=== PATIENT | male | born 1975 | race African-American/Black ===

== ENCOUNTER 2024-09-29 18:48 | Inpatient (IN) ==
[2024-09-29] MEDS: KETOROLAC TROMETHAMINE 15 MG/ML VIAL IV ONE (19:16)
[2024-09-29] MEDS: ONDANSETRON INJ 2 MG/ML 2 ML VIAL IV STA ×2 (19:16→20:09)
[2024-09-29 19:40] LABS: Basophils # (auto) 0.04 K/uL (0.00-0.20); Basophils % (auto) 0.5 %; Eosinophils # (auto) 0.03 K/uL (0.00-0.50); Eosinophils % (auto) 0.4 %; Hemoglobin 15.7 g/dl (14.0-18.0); Immature Granulocytes # (auto) 0.03 K/uL (0.01-0.20); Immature Granulocytes % (auto) 0.4 %; Lymphocytes # (auto) 1.83 K/uL (1.20-3.40); Lymphocytes % (auto) 23.2 %; Mean Corpuscular Hemoglobin 25.3 pg (25.0-34.0); Mean Corpuscular Volume 78.9 fL (80.0-100.0); Mean Platelet Volume 9.7 fL (9.4-12.4); Monocytes # (auto) 0.65 K/uL (0.11-0.59); Monocytes % (auto) 8.2 %; Neutrophils # (auto) 5.32 K/uL (1.40-6.50); Neutrophils % (auto) 67.3 %; Platelet Count 226 K/uL (130-400); RDW Coefficient of Variation 13.9 % (11.5-14.5); RDW Standard Deviation 38.8 fL (36.4-46.3); Red Blood Count 6.21 M/uL (4.70-6.10)
[2024-09-29 19:55] LABS: Albumin Globulin Ratio 1.5 (0.9-2); Albumin Level 4.3 gm/dl (3.4-5.0); BUN Creatinine Ratio 11.8 (10-20); Bilirubin,Total 0.6 mg/dl (0.2-1.0); Calcium 9.7 mg/dl (8.6-10.3); Creatinine Clr Calc Pharmacy 64.9 ml/min; Globulin 2.8 gm/dl (2.5-4.0); Total Protein 7.1 gm/dl (6.0-8.3)
[2024-09-29 20:06] LABS: Appearance Urine Clear (Clear); Bilirubin Urine Negative (Negative); Blood Urine Negative (Negative); Color Urine Yellow; Glucose Urine UA Negative (Negative); Ketones Urine Trace (Negative); Leukocyte Esterase Urine Negative (Negative); Nitrite Urine Negative (Negative); Protein Urine Negative (Negative); Specific Gravity Urine 1.025 (1.000-1.030); Urobilinogen Urine Negative (Negative)
[2024-09-29] MEDS: MoRPHine SULFATE 4 MG/ML 1 ML CARP\\VIAL IV STA ×2 (20:09→21:37)
[2024-09-29] MEDS: SODIUM CHLORIDE 0.9% 1,000 ML IV SCH (20:09)
[2024-09-29 21:33] LABS: Adenovirus PCR Not Detected (NotDetected); Bordetella parapertussis PCR Not Detected (NotDetected); Bordetella pertussis PCR Not Detected (NotDetected); Chlamydia pneumoniae PCR Not Detected (NotDetected); Coronavirus 229E PCR Not Detected (NotDetected); Coronavirus CoV-2 (COVID19)PCR Not Detected (NotDetected); Coronavirus HKU1 PCR Not Detected (NotDetected); Coronavirus NL63 PCR Not Detected (NotDetected); Coronavirus OC43PCR Not Detected (NotDetected); Human Metapneumovirus PCR Not Detected (NotDetected); Influenza A PCR Not Detected (NotDetected); Influenza B PCR Not Detected (NotDetected); Mycoplasma pneumoniae PCR Not Detected (NotDetected); Parainfluenza Virus 1 PCR Not Detected (NotDetected); Parainfluenza Virus 2 PCR Not Detected (NotDetected); Parainfluenza Virus 3 PCR Not Detected (NotDetected); Parainfluenza Virus 4 PCR Not Detected (NotDetected); Respiratory Syncytial VirusPCR Not Detected (NotDetected); Rhinovirus/Enterovirus PCR Not Detected (NotDetected)
[2024-09-29] MEDS: OPTIRAY 320 100ml IV ONE (22:24)
--- NOTE | 2024-09-29 23:23 | History & Physical Report ---
Date of Service September 29, 2024 Assessment & Plan (1) ARF (acute renal failure): Plan: ARF Multifactorial obstructive uropathy, recurrent kidney stones Home medications contributory Complicated UTI Early pyelonephritis status post outpatient ceftriaxone Rx No sepsis UA clear hypertension, stable hyperlipidemia, not on statin Rx SIXTO on CPAP DM2 on oral medications, unknown baseline control gout, stable on regimen Admit to [facility] Monitor creatinine response to IVF Hold home diuretic, lisinopril, and ibuprofen until creatinine back to baseline Strain urine Urology consult re: obstructive uropathy N.p.o. in anticipation of procedure ISS BG goal 1 10-1 40, check hemoglobin A1c DVT prophylaxis. Heparin subcu Full code Text document was generated using [employer] voice recognition software. It may contain grammatical or spelling errors. Kindly contact undersigned for clarification of any documentation item in question. History of Present Illness Chief Complaint: Kidney stone pain Primary Care Provider: YOVANI Arroyo History obtained from patient and records. Medical history significant for hypertension, hyperlipidemia, SIXTO on CPAP, DM2 on oral medications, gout, urolithiasis. 2 days ago, patient noted achy right-sided abdominal and flank pain reminiscent of kidney stone pain. No hematuria, no fever, no chills. Patient evaluated at [facility] ER Early pyelonephritis on CT. Patient given ceftriaxone at the ER prior to [facility]. Patient received IM ceftriaxone daily at facility following discharge. Recurrence of right sided abdominal and flank pain today with nausea symptoms. Poor appetite. Transient SOB from pain. Denies chest pain. No hematuria. Patient returned to ER for evaluation. IV ceftriaxone administered at the ER. 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 Allergies Allergy/AdvReac Type Severity Reaction Status Date / Time No Known Allergies Allergy Verified 09/29/24 23:50 Home Medications Medication Instructions Recorded Confirmed Type acetaminophen 500 mg tablet 1,000 mg PO TID PRN Pain 09/29/24 09/29/24 History allopurinol 300 mg tablet 300 mg PO DAILY 09/29/24 09/29/24 History ceftriaxone 1 gram solution for 1 g IM DAILY 09/29/24 09/29/24 History injection ceftriaxone 1 gram solution for 1 g IM Q12H 09/29/24 09/30/24 History injection ceftriaxone 2 gram solution for 2 g IM DAILY 09/30/24 09/30/24 History injection chlorthalidone 25 mg tablet 12.5 mg PO DAILY 09/30/24 09/30/24 History colchicine 0.6 mg tablet 0.6 mg PO DAILY PRN FLARES 09/30/24 09/30/24 History ibuprofen 400 mg tablet 400 mg PO TID PRN Pain 09/30/24 09/30/24 History lisinopril 30 mg tablet 30 mg PO DAILY 09/30/24 09/30/24 History metformin 500 mg tablet 500 mg PO BIDM 09/30/24 09/30/24 History promethazine 25 mg/mL injection 25 mg IM DAILY PRN Nausea And 09/30/24 09/30/24 History solution Vomiting Past Med/Surg History Problem List ARF (acute renal failure) Right kidney stone (Acute) Acute right flank pain (Acute) Acute pyelonephritis (Acute) Medical History Diabetes Hypertension Social History Smoking Status: Never smoker Hx Alcohol Use: No Hx Substance Use: No Preferred Language: Zimbabwean Communication Ability: Effective Bag Patcher Required: No Beliefs That Will Affect Care: None Current Living Situation Comment: [facility] Other Information That Helps Us Care for You: No Feels Safe at Home: Yes Safety Concerns: Feels Safe At This Time Review of Systems Review of Systems: As per HPI, all other systems reviewed and negative Physical Exam Physical Exam: GENERAL: Anxious, obese, no respiratory distress SKIN: Normal color, warm HEENT: Alopecia, bespectacled, pink palpebral conjunctivae, no ptosis, dry buccal mucosa NECK : Supple, no tenderness CHEST : CTA, no tenderness HEART : RRR, no obvious murmurs ABDOMEN: Some distention, RLQ tenderness EXTREMITIES : No LE swelling/tenderness, palpable pulses, no other conspicuous deformities noted NEUROLOGIC : Coherent, no facial asymmetry, no other gross focality Results & Data Results & Data Vital Signs (Past 12 Hours) Vital Signs Temp Pulse Pulse Resp BP BP Pulse Ox 09/29/24 22:00 75 18 132/73 93 09/29/24 20:00 73 18 147/84 H 96 09/29/24 18:56 36.5 C 76 16 189/102 H 98 O2 Del Method 09/29/24 22:00 Room Air 09/29/24 20:00 09/29/24 18:56 Room Air Laboratory Results Laboratory Results WBC 7.90 K/ul (4.8-10.8) 09/29/24 19: RBC 6.21 M/uL (4.70-6.10) H 09/29/24 19:24 Hgb 15.7 g/dl (14.0-18.0) 09/29/24 19: Hct 49.0 % (42.0-52.0) 09/29/24: MCV 78.9 fL (80.0-100.0) L 09/29/24 19: MCH 25.3 pg (25.0-34.0) 09/29/24: MCHC 32.0 g/dL (32.0-36.0) 09/29/24: RDW Std Deviation 38.8 fL (36.4-46.3) 09/29/24: RDW Coeff of Madie 13.9 % (11.5-14.5) 09/29/24: Plt Count 226 K/uL (130-400) 09/29/24 19: MPV 9.7 fL (9.4-12.4) 09/29/24 19: Immature Gran % (Auto) 0.4 % 09/29/24: Neut % (Auto) 67.3 % 09/29/24: Lymph % (Auto) 23.2 % 09/29/24 19: [place] % (Auto) 8.2 % 09/29/24: Eos % (Auto) 0.4 % 09/29/24: Baso % (Auto) 0.5 % 09/29/24: Neut # (Auto) 5.32 K/uL (1.40-6.50) 09/29/24 19: Lymph # (Auto) 1.83 K/uL (1.20-3.40) 09/29/24: [place] # (Auto) 0.65 K/uL (0.11-0.59) H 09/29/24 19:24 Eos # (Auto) 0.03 K/uL (0.00-0.50) 09/29/24 19:24 Baso # (Auto) 0.04 K/uL (0.00-0.20) 09/29/24 19:24 Immature Gran # (Auto) 0.03 K/uL (0.01-0.20) 09/29/24 19:24 Sodium 138 mmol/L (136-145) 09/29/24 19:24 Potassium 4.0 mmol/L (3.5-5.1) 09/29/24 19:24 Chloride 105 mmol/L (98-107) 09/29/24 19:24 Carbon Dioxide 25 mmol/L (21-32) 09/29/24 19:24 Anion Gap 8 (3-11) 09/29/24 19:24 BUN 20 mg/dl (6-23) 09/29/24 19:24 Creatinine 1.70 mg/dl (0.6-1.4) H 09/29/24 19:24 Est Cr Clr Drug Dosing 64.9 ml/min 09/29/24 19:24 eGFR 49.11 09/29/24 19:24 BUN/Creatinine Ratio 11.8 (10-20) 09/29/24 19:24 Glucose 126 mg/dl (70-99(Fasting)) H 09/29/24 19:24 Calcium 9.7 mg/dl (8.6-10.3) 09/29/24 19:24 Total Bilirubin 0.6 mg/dl (0.2-1.0) 09/29/24 19:24 AST 25 U/L (13-39) 09/29/24 19:24 ALT 27 U/L (7-52) 09/29/24 19:24 Alkaline Phosphatase 64 U/L (34-104) 09/29/24 19:24 Total Protein 7.1 gm/dl (6.0-8.3) 09/29/24 19:24 Albumin 4.3 gm/dl (3.4-5.0) 09/29/24 19:24 Globulin 2.8 gm/dl (2.5-4.0) 09/29/24 19:24 Albumin/Globulin Ratio 1.5 (0.9-2) 09/29/24: Urine Color Yellow 09/29/24: Urine Appearance Clear (Clear) 09/29/24: Urine pH 5.0 (4.5-7.5) 09/29/24: Ur Specific [place] 1.025 (1.000-1.030) 09/29/24: Urine Protein Negative (Negative) 09/29/24: Urine Glucose (UA) Negative (Negative) 09/29/24: Urine Ketones Trace (Negative) H 09/29/24: Urine Blood Negative (Negative) 09/29/24: Urine Nitrite Negative (Negative) 09/29/24: Urine Bilirubin Negative (Negative) 09/29/24 Urine Urobilinogen Negative (Negative) 09/29/24 Ur Leukocyte Esterase Negative (Negative) 09/29/24: Adenovirus (PCR) Not Detected (NotDetected) 09/29/24 20: B. pertussis DNA (PCR) Not Detected (NotDetected) 09/29/24 20: B.parapertussis DNA PCR Not Detected (NotDetected) 09/29/24 20: C. pneumoniae DNA (PCR) Not Detected (NotDetected) 09/29/24 20: Coronavirus OC43 (PCR) Not Detected (NotDetected) 09/29/24 20: Coronavirus HKU1 (PCR) Not Detected (NotDetected) 09/29/24 20: Coronavirus 229E (PCR) Not Detected (NotDetected) 09/29/24 20: SARS-CoV-2 (PCR) Not Detected (NotDetected) 09/29/24 20: Coronavirus NL63 (PCR) Not Detected (NotDetected) 09/29/24 20: Human Metapneumovir PCR Not Detected (NotDetected) 09/29/24 20: Influenza Type A (PCR) Not Detected (NotDetected) 09/29/24 20: Influenza Type B (PCR) Not Detected (NotDetected) 09/29/24 20: M. pneumoniae (PCR) Not Detected (NotDetected) 09/29/24 20:26 Parainfluenza 1 (PCR) Not Detected (NotDetected) 09/29/24 20:26 Parainfluenza 2 (PCR) Not Detected (NotDetected) 09/29/24 20:26 Parainfluenza 3 (PCR) Not Detected (NotDetected) 09/29/24 20:26 Parainfluenza 4 (PCR) Not Detected (NotDetected) 09/29/24 20:26 RSV (PCR) Not Detected (NotDetected) 09/29/24 20:26 Entero/Rhino (PCR) Not Detected (NotDetected) 09/29/24 20:26 CT abdomen pelvis: Previously seen 10 mm right renal pelvis stone has migrated to the proximal right ureter, now at the L3 level, producing mild upstream hydroureteronephrosis. Diagnostic Findings Chest x-ray as per my interpretation atelectasis
[2024-09-29] MEDS ORDERED: PROMETHAZINE 12.5 MG/50.5 ML BAG IV PRN (23:24)
[2024-09-29] MEDS: cefTRIAXone SODIUM 1,000 MG/50 ML BAG IV STA (23:25)
--- NOTE | 2024-09-29 23:33 | CT Scan Report ---
Exam(s): CT ABDOMEN + PELVIS With Contrast IV Amt: 93 cc opti 320 EXAM: CT Abdomen and Pelvis With Intravenous Contrast CLINICAL HISTORY: Reason for exam: RLQ pain. TECHNIQUE: Axial computed tomography images of the abdomen and pelvis with intravenous contrast. CTDI is 27.98 mGy and DLP is 1428.66 mGy-cm. Automated exposure control was utilized for the study. A dose lowering technique was utilized adhering to the principles of ALARA. CONTRAST: Patient received 93 cc opti 320 of IV contrast COMPARISON: 09/27/24 FINDINGS: Lung bases: Unremarkable. ABDOMEN: Liver: Unremarkable. No mass. Gallbladder and bile ducts: Unremarkable. No calcified stones. No ductal dilation. Pancreas: Unremarkable. No mass. No ductal dilation. Spleen: Unremarkable. No splenomegaly. Adrenals: Unremarkable. No mass. Kidneys and ureters: Previously seen 10 mm right renal pelvis stone has migrated to the proximal right ureter, now at the L3 level, producing mild upstream hydroureteronephrosis. Punctate nonobstructing left kidney stones. Left kidney and collecting system are otherwise unremarkable. Stomach and bowel: Unremarkable. No obstruction. No mucosal thickening. PELVIS: Appendix: Normal appendix. Bladder: Unremarkable. No mass. Reproductive: Unremarkable as visualized. ABDOMEN and PELVIS: Intraperitoneal space: Unremarkable. No free air, significant free fluid, or fluid collection. Bones/joints: No acute fracture. No dislocation. Soft tissues: Unremarkable. Vasculature: Unremarkable. No abdominal aortic aneurysm. Lymph nodes: Unremarkable. No enlarged lymph nodes. IMPRESSION: Previously seen 10 mm right renal pelvis stone has migrated to the proximal right ureter, now at the L3 level, producing mild upstream hydroureteronephrosis. Electronically signed by: Marquita Manriquez M.D. 09/29/24 23:32 PM
--- NOTE | 2024-09-29 23:37 | Emergency Department Note ---
History of Present Illness General Chief complaint: Kidney Stone Stated complaint: KIDNEY STONE Time Seen by Provider: 09/29/24 19:52 Source: patient Mode of arrival: ambulatory Limitations: no limitations History of Present Illness Maximum Pain Intensity: 6 Patient is a 48-year-old male presents with persistent right lower quadrant and right flank pain. He was seen 2 days prior with similar pain and diagnosed with pyelonephritis. He is currently saving IM ceftriaxone [facility] a day at the senior care. He also reports increased urinary urgency associate with the pain. He did have a renal calculi 1 cm in diameter noted on prior CT but no obstructive process noted. He did have a fever today at the senior care that has since resolved. Denies any nausea or vomiting. Denies any chest pain, shortness of breath, cough, change in bowel habits, hematuria, foul-smelling urine. Allergies Allergy/AdvReac Type Severity Reaction Status Date / Time No Known Allergies Allergy Unverified 09/29/24 21:21 Past Med/Surg History Problem List (Updated 09/29/24 @ 23:41 by Marshal Beatty MD) Right kidney stone (Acute) Acute right flank pain (Acute) Acute pyelonephritis (Acute) Medical History Diabetes Hypertension Social History Smoking Status: Never smoker Preferred Language: Slovak Feels Safe at Home: Yes Review of Systems See HPI for pertinent positives & negatives. Physical Exam Vital Signs Vital Signs - 24 hr 09/29/24 18:56 09/29/24 20:00 09/29/24 22:00 Temperature 36.5 C Temperature Source Temporal Artery Scan Pulse Rate 76 Pulse Rate [Finger] 73 75 Respiratory Rate 16 18 18 Blood Pressure 189/102 H Blood Pressure [Right Arm] 147/84 H 132/73 Blood Pressure Mean 131 Blood Pressure Mean [Right Arm] 105 92 Pulse Oximetry 98 96 93 Oxygen Delivery Method Room Air Room Air Sepsis Recent Fever Within 48 Hours Yes Sepsis New/Unexplained Change in Mental Status No Sepsis Action Taken by Nursing No Action Required See below Constitutional WD/WN, vitals as above Respiratory normal respiratory effort, lungs clear to auscultation Cardiovascular RRR, no murmur, no edema Gastrointestinal (Abdomen) Tenderness to palpation to the right lower quadrant, negative right CVA tenderness, nondistended, nonperitoneal exam, no mass Course Administered Medications Ceftriaxone Sodium (Rocephin) 1,000 mg in 50 mls @ 100 mls/hr IV NOW STA Stop: 09/29/24 23:41 Last Admin: 09/29/24 23:25 Dose: 100 mls/hr Documented By: ADAM Discontinued Medications Sodium Chloride (Nss) 1,000 mls @ 999 mls/hr IV .Q1H1M RONY Stop: 09/29/24 21:01 Last Infusion: 09/29/24 22:48 Dose: Infused Documented By: Admin: 09/29/24 20:09 Dose: 999 mls/hr Documented By: HEAVEN Ioversol (Optiray 320 100ml) 93 ml IV ONCE ONE Stop: 09/29/24 22:23 Last Admin: 09/29/24 22:24 Dose: 93 ml Documented By: THELMA Ketorolac Tromethamine (Ketorolac Tromethamine 15 Mg/Ml Vial) 10 mg IV NOW ONE Stop: 09/29/24 19:14 Last Admin: 09/29/24 19:16 Dose: 10 mg Documented By: BENY Morphine Sulfate (Morphine Sulfate 4 Mg/Ml 1 Ml Carp\Vial) 4 mg IV NOW STA Stop: 09/29/24 20:02 Last Admin: 09/29/24 20:09 Dose: 4 mg Documented By: HEAVEN Morphine Sulfate (Morphine Sulfate 4 Mg/Ml 1 Ml Carp\Vial) 4 mg IV NOW STA Stop: 09/29/24 21:22 Last Admin: 09/29/24 21:37 Dose: 4 mg Documented By: HEAVEN Ondansetron HCl (Ondansetron Inj 2 Mg/Ml 2 Ml Vial) 4 mg IV NOW STA Stop: 09/29/24 19:14 Last Admin: 09/29/24 19:16 Dose: 4 mg Documented By: BENY Ondansetron HCl (Ondansetron Inj 2 Mg/Ml 2 Ml Vial) 4 mg IV NOW STA Stop: 09/29/24 20:02 Last Admin: 09/29/24 20:09 Dose: Not Given Documented By: HEAVEN Medical Decision Making Differential Diagnosis Obstructive uropathy, pyelonephritis, pyogenic abscess, cholecystitis, choledocholithiasis, appendicitis, gastroenteritis Laboratory Data Attestation: I reviewed the patient's lab results. 09/29/24 19:24 09/29/24 19:24 Lab Results 09/29/24 09/29/24 09/29/24 Range/Units 19:24 19: 20:26 WBC 7.90 (4.8-10.8) K/ul RBC 6.21 H (4.70-6.10) M/uL Hgb 15.7 (14.0-18.0) g/dl Hct 49.0 (42.0-52.0) % MCV 78.9 L (80.0-100.0) fL MCH 25.3 (25.0-34.0) pg MCHC 32.0 (32.0-36.0) g/dL RDW Std Deviation 38.8 (36.4-46.3) fL RDW Coeff of Madie 13.9 (11.5-14.5) % Plt Count 226 (130-400) K/uL MPV 9.7 (9.4-12.4) fL Immature Gran % (Auto) 0.4 % Neut % (Auto) 67.3 % Lymph % (Auto) 23.2 % [place] % (Auto) 8.2 % Eos % (Auto) 0.4 % Baso % (Auto) 0.5 % Neut # (Auto) 5.32 (1.40-6.50) K/uL Lymph # (Auto) 1.83 (1.20-3.40) K/uL [place] # (Auto) 0.65 H (0.11-0.59) K/uL Eos # (Auto) 0.03 (0.00-0.50) K/uL Baso # (Auto) 0.04 (0.00-0.20) K/uL Immature Gran # (Auto) 0.03 (0.01-0.20) K/uL Sodium 138 (136-145) mmol/L Potassium 4.0 (3.5-5.1) mmol/L Chloride 105 (98-107) mmol/L Carbon Dioxide 25 (21-32) mmol/L Anion Gap 8 (3-11) BUN 20 (6-23) mg/dl Creatinine 1.70 H (0.6-1.4) mg/dl Est Cr Clr Drug Dosing 64.9 ml/min eGFR 49.11 BUN/Creatinine Ratio 11.8 (10-20) Glucose 126 H (70-99(Fasting)) mg/dl Calcium 9.7 (8.6-10.3) mg/dl Total Bilirubin 0.6 (0.2-1.0) mg/dl AST 25 (13-39) U/L ALT 27 (7-52) U/L Alkaline Phosphatase 64 (34-104) U/L Total Protein 7.1 (6.0-8.3) gm/dl Albumin 4.3 (3.4-5.0) gm/dl Globulin 2.8 (2.5-4.0) gm/dl Albumin/Globulin Ratio 1.5 (0.9-2) Urine Color Yellow Urine Appearance Clear (Clear) Urine pH 5.0 (4.5-7.5) Ur Specific [place] 1.025 (1.000-1.030) Urine Protein Negative (Negative) Urine Glucose (UA) Negative (Negative) Urine Ketones Trace H (Negative) Urine Blood Negative (Negative) Urine Nitrite Negative (Negative) Urine Bilirubin Negative (Negative) Urine Urobilinogen Negative (Negative) Ur Leukocyte Esterase Negative (Negative) Adenovirus (PCR) Not Detected (NotDetected) B. pertussis DNA (PCR) Not Detected (NotDetected) B.parapertussis DNA PCR Not Detected (NotDetected) C. pneumoniae DNA (PCR) Not Detected (NotDetected) Coronavirus OC43 (PCR) Not Detected (NotDetected) Coronavirus HKU1 (PCR) Not Detected (NotDetected) Coronavirus 229E (PCR) Not Detected (NotDetected) SARS-CoV-2 (PCR) Not Detected (NotDetected) Coronavirus NL63 (PCR) Not Detected (NotDetected) Human Metapneumovir PCR Not Detected (NotDetected) Influenza Type A (PCR) Not Detected (NotDetected) Influenza Type B (PCR) Not Detected (NotDetected) M. pneumoniae (PCR) Not Detected (NotDetected) Parainfluenza 1 (PCR) Not Detected (NotDetected) Parainfluenza 2 (PCR) Not Detected (NotDetected) Parainfluenza 3 (PCR) Not Detected (NotDetected) Parainfluenza 4 (PCR) Not Detected (NotDetected) RSV (PCR) Not Detected (NotDetected) Entero/Rhino (PCR) Not Detected (NotDetected) Imaging Data Radiologist's Impression: Abdomen/Pelvis CT 09/29/24 21:21 Exam(s): CT ABDOMEN + PELVIS With Contrast IV Amt: 93 cc opti 320 EXAM: CT Abdomen and Pelvis With Intravenous Contrast CLINICAL HISTORY: Reason for exam: RLQ pain. TECHNIQUE: Axial computed tomography images of the abdomen and pelvis with intravenous contrast. CTDI is 27.98 mGy and DLP is 1428.66 mGy-cm. Automated exposure control was utilized for the study. A dose lowering technique was utilized adhering to the principles of ALARA. CONTRAST: Patient received 93 cc opti 320 of IV contrast COMPARISON: 09/27/24 FINDINGS: Lung bases: Unremarkable. ABDOMEN: Liver: Unremarkable. No mass. Gallbladder and bile ducts: Unremarkable. No calcified stones. No ductal dilation. Pancreas: Unremarkable. No mass. No ductal dilation. Spleen: Unremarkable. No splenomegaly. Adrenals: Unremarkable. No mass. Kidneys and ureters: Previously seen 10 mm right renal pelvis stone has migrated to the proximal right ureter, now at the L3 level, producing mild upstream hydroureteronephrosis. Punctate nonobstructing left kidney stones. Left kidney and collecting system are otherwise unremarkable. Stomach and bowel: Unremarkable. No obstruction. No mucosal thickening. PELVIS: Appendix: Normal appendix. Bladder: Unremarkable. No mass. Reproductive: Unremarkable as visualized. ABDOMEN and PELVIS: Intraperitoneal space: Unremarkable. No free air, significant free fluid, or fluid collection. Bones/joints: No acute fracture. No dislocation. Soft tissues: Unremarkable. Vasculature: Unremarkable. No abdominal aortic aneurysm. Lymph nodes: Unremarkable. No enlarged lymph nodes. IMPRESSION: Previously seen 10 mm right renal pelvis stone has migrated to the proximal right ureter, now at the L3 level, producing mild upstream hydroureteronephrosis. Electronically signed by: Marquita Manriquez M.D. 09/29/24 23:32 PM Blood Pressure Blood Pressure Findings: Elevated blood pressure Blood Pressure Disposition: elevated BP felt to be situational MDM Narrative Patient is a 48-year-old male presents with persistent right lower quadrant and right flank pain. Afebrile nontoxic-appearing here today. Nonperitoneal abdominal exam. No leukocytosis or bandemia noted on lab work. UA nonconcerning for persistent infection. Creatinine has increased to 1.[address] scan was repeated today which shows progression of the 1 cm renal stone to the proximal ureter. Because of the pain requirements and the size of the stone patient will likely need urologic intervention for definitive management of ureteral stone. No evidence of septic stone at this time no indication for emergent urologic intervention. Will admit to hospitalist service for further management and consultation with urology. Impression & Plan Right kidney stone Admit to hospitalist Discharge Plan Visit Data Chief Complaint: Kidney Stone Stated Complaint: KIDNEY STONE ED Provider: Marshal Beatty Discharge Problem: Right kidney stone Forms Stand Alone Forms: [facility] Referrals Referrals: [facility] [Primary Care Provider] -
[2024-09-29] MEDS ORDERED: CARBOHYDRATES FOR HYPOGLYCEMIA PO PRN (23:48)
[2024-09-29] MEDS ORDERED: GLUCOSE 10 TAB/TUBE PO PRN (23:48)
[2024-09-29] MEDS ORDERED: GLUCOSE 40% GEL 15 GM TUBE PO PRN (23:48)
[2024-09-29] MEDS ORDERED: GLUCAGON FOR INJ 1 MG VIAL SQ PRN (23:48)
[2024-09-29] MEDS ORDERED: DEXTROSE 50% 50 ML SYRINGE IV PRN (23:48)
[2024-09-29] MEDS ORDERED: LORazepam 0.5 MG TAB PO PRN (23:51)
[2024-09-30] MEDS: INSULIN ASPART PER UNIT CHARGE SC SCH ×2 (00:48→16:49)
[2024-09-30] MEDS: SODIUM CHLORIDE 0.9% 1,000 ML IV ONE ×2 (00:52→10:37)
--- NOTE | 2024-09-30 01:01 | XRay Report ---
EXAM: XR chest 1V portable CLINICAL HISTORY: SOB. TECHNIQUE: An X-ray image of the chest is obtained using an AP projection. COMPARISON: No prior studies are available for comparison. FINDINGS: Pulmonary Parenchyma: Lungs are clear bilaterally. No evidence of consolidation, collapse, or focal opacities. No pulmonary nodules are identified. Prominent bronchovascular markings are seen bilaterally likely due to congestion. No evidence of pleural effusion or pleural thickening. Heart and Mediastinum: Heart size and shape are normal. No mediastinal widening or masses. No hilar or mediastinal lymphadenopathy. Bony Thorax: The bony thorax appears intact without fractures or deformities. Degenerative changes are seen in the visualized thoracic spine. Soft Tissues: Soft tissues overlying the chest wall are unremarkable. IMPRESSION: 1. Prominent bronchovascular markings are seen bilaterally likely due to congestion. 2. No evidence of consolidation or pleural effusion. Electronically signed by Obdulio Reid 09-30-2024 01:00 AM
[2024-09-30] MEDS: HYDROmorphone INJ 1 MG/ML SYRINGE IV PRN (04:12)
[2024-09-30] MEDS: HEPARIN SOD 5,000 UNIT/0.5 ML VIAL SQ SCH (06:31)
[2024-09-30 06:47] LABS: Basophils # (auto) 0.02 K/uL (0.00-0.20); Basophils % (auto) 0.3 %; Eosinophils # (auto) 0.06 K/uL (0.00-0.50); Eosinophils % (auto) 0.8 %; Hematocrit (blood only) 42.1 % (42.0-52.0); Hemoglobin 13.6 g/dl (14.0-18.0); Immature Granulocytes # (auto) 0.02 K/uL (0.01-0.20); Immature Granulocytes % (auto) 0.3 %; Lymphocytes # (auto) 2.13 K/uL (1.20-3.40); Lymphocytes % (auto) 29.4 %; Mean Corpuscular Hemoglobin 25.8 pg (25.0-34.0); Mean Corpuscular Hgb Conc 32.3 g/dL (32.0-36.0); Mean Corpuscular Volume 79.7 fL (80.0-100.0); Mean Platelet Volume 10.5 fL (9.4-12.4); Monocytes # (auto) 0.87 K/uL (0.11-0.59); Neutrophils # (auto) 4.14 K/uL (1.40-6.50); Neutrophils % (auto) 57.2 %; Platelet Count 184 K/uL (130-400); RDW Coefficient of Variation 14.3 % (11.5-14.5); RDW Standard Deviation 40.8 fL (36.4-46.3); Red Blood Count 5.28 M/uL (4.70-6.10); White Blood Count 7.24 K/ul (4.8-10.8)
[2024-09-30 07:54] LABS: BUN Creatinine Ratio 8.8 (10-20); Blood Urea Nitrogen 18 mg/dl (6-23); Calcium 8.2 mg/dl (8.6-10.3); Carbon Dioxide 25 mmol/L (21-32); Chloride 108 mmol/L (98-107); Creatinine Clr Calc Pharmacy 54.1 ml/min; Glucose 112 mg/dl (70-99(Fasting))
--- NOTE | 2024-09-30 08:26 | Urology Consultation ---
<Statement entered by Gopal Lorenz MD - 09/30/24 13:19> 48-year-old male with TODD and ureteral stone with ongoing pain. We will plan on cystoscopy and right ureteral stent placement to allow maximal drainage of his right kidney. Date of Consultation September 30, 2024 Assessment & Plan (1) Right kidney stone: (2) Acute right flank pain: (3) ARF (acute renal failure): 48-year-old male admitted for right renal colic and TODD secondary to an obstructing right ureteral calculus. Patient currently afebrile, hemodynamically stable Labs reviewedcreatinine increased to 2.04, WBC 7.24, hemoglobin 13.6 Urinalysis on arrival was not suspicious of infection, he has been on IM ce ftriaxone outpatient CT imaging reviewed and discussed Given obstructing right ureteral stone and TODD, recommend cystoscopy and right ureteral stent placement Ureteral stents were discussed in detail Discussed stone treatment to take place at a later date, patient is agreeable to proceed Proceed to OR for cystoscopy and right ureteral stent placement Keep n.p.o. for procedure Continue antibiotics and supportive care Patient can likely be discharged back to the [facility] after procedure, continue with course of antibiotics as previously planned History of Present Illness Reason for Consultation: right ureteral stone Attending Physician: Yenny Oden MD History of Present Illness This is a 48-year-old male with past medical history of hypertension, hyperlipidemia, SIXTO, type 2 diabetes, and nephrolithiasis who presented to the ED on 09/29/2024 for evaluation of recurrent right-sided abdominal and flank pain with nausea. He was seen at [facility] 2 days prior for right abdominal/flank pain and was diagnosed with UTI/early pyelonephritis and was discharged back to [facility] ([facility] to continue antibiotic therapy. Patient had recurrence of right flank discomfort, urinary symptoms, fever/chills and nausea and return for further evaluation. On arrival, he was afebrile, hypertensive. Lab work showed creatinine 1.7, WBC 7.9, hemoglobin 15.7. Urinalysis showed trace ketones, otherwise unremarkable. Bio fire PCR negative. CT abdomen pelvis noted previously seen 10 mm right renal pelvis stone has migrated to the proximal ureter resulting in mild upstream hydroureteronephrosis. Punctate nonobstructing left kidney stones. ED course: Ceftriaxone, IV fluids, ketorolac, morphine and ondansetron. He was admitted to the hospital medicine service for further management. Urology is consulted for right ureteral stone. Patient seen and examined in the emergency department. Two guards in room. Patient reports pain is controlled at present after recently receiving morphine. Reports urinary urgency/frequency. Reports fever/chills prior to arrival, but denies at present time. No nausea or vomiting at present. He reports that he had a Sprite yesterday evening. Prior history of stones. No previous history of stone surgery. Allergies Allergy/AdvReac Type Severity Reaction Status Date / Time No Known Allergies Allergy Verified 09/29/24 23:50 Home Medications Medication Instructions Recorded Confirmed Type acetaminophen 500 mg tablet 1,000 mg PO TID PRN Pain 09/29/24 09/29/24 History allopurinol 300 mg tablet 300 mg PO DAILY 09/29/24 09/29/24 History ceftriaxone 1 gram solution for 1 g IM DAILY 09/29/24 09/29/24 History injection ceftriaxone 1 gram solution for 1 g IM Q12H 09/29/24 09/30/24 History injection ceftriaxone 2 gram solution for 2 g IM DAILY 09/30/24 09/30/24 History injection chlorthalidone 25 mg tablet 12.5 mg PO DAILY 09/30/24 09/30/24 History colchicine 0.6 mg tablet 0.6 mg PO DAILY PRN FLARES 09/30/24 09/30/24 History ibuprofen 400 mg tablet 400 mg PO TID PRN Pain 09/30/24 09/30/24 History lisinopril 30 mg tablet 30 mg PO DAILY 09/30/24 09/30/24 History metformin 500 mg tablet 500 mg PO BIDM 09/30/24 09/30/24 History promethazine 25 mg/mL injection 25 mg IM DAILY PRN Nausea And 09/30/24 09/30/24 History solution Vomiting Patient History Medical History Diabetes Hypertension Social History Smoking Status: Never smoker Hx Alcohol Use: No Hx Substance Use: No Preferred Language: Swedish Communication Ability: Effective Assistant Gm Of Content & Delivery Required: No Beliefs That Will Affect Care: None Current Living Situation Comment: [place] Other Information That Helps Us Care for You: No Feels Safe at Home: Yes Safety Concerns: Feels Safe At This Time Review of Systems Review of Systems: All systems reviewed & are unremarkable except as noted in HPI & below Physical Exam Constitutional: well developed and well nourished; no acute distress Respiratory: normal respiratory effort; no respiratory distress and no labored breathing Gastrointestinal (Abdomen): Inspection/Auscultation: abdomen normal to inspection Musculoskeletal: Head/Neck/Chest: normocephalic Neurologic: moves all extremities and awake Psychiatric: Orientation: alert and oriented x 3 Results & Data Vital Signs (Past 12 Hours) Vital Signs Pulse Pulse Resp BP BP Pulse Ox O2 Del Method 09/30/24 06:16 66 09/30/24 06:06 65 18 105/57 L 93 Room Air 09/30/24 02:03 72 23 96 09/30/24 02:00 130/78 09/30/24 01:54 72 23 96 09/30/24 01:51 68 25 H 96 09/30/24 01:30 72 20 121/80 96 09/30/24 01:30 121/80 09/30/24 01:16 75 09/30/24 01:12 74 30 H 117/73 95 09/30/24 00:36 79 18 100/62 95 09/30/24 00:09 72 19 104/65 93 09/29/24 22:00 75 18 132/73 93 Room Air PG Care Time/CCT Total # of Minutes Spent Total Time Spent with Patient: Total time spent is greater than 50% in coordination of care (as documented) at patient's floor/unit and/or counseling patient: Coding Level of Care Code 67468 IN/OBS CONSULT LVL 4,60M Diagnoses Right kidney stone N20.0 Acute right flank pain R10.9 ARF (acute renal failure) N17.9
[2024-09-30] MEDS: allopurinoL 300 MG TAB PO SCH (08:28)
[2024-09-30 09:11] LABS: Potassium 3.9 mmol/L (3.5-5.1)
--- NOTE | 2024-09-30 11:22 | Hospitalist Progress Note ---
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 Patient was recently seen in the ED [09/27] for early pyelonephritis x right side and was discharged on Rocephin daily. Patient did have recurrent right-sided abdominal pain with nausea symptoms and hence presented again today to the ED. He is being managed for the following: Obstructive uropathy, recurrent kidney stones Early Right sided pyelonephritis Patient presents with recurrent right-sided abdominal pain with nausea symptoms and poor appetite. Admitting CTAP with 10 mm right renal stone at proximal right ureter producing mild upstream hydroureteronephrosis. Admitting UA negative for UTI, patient was on Rocephin daily prior to this admission. See above. Patient started on Rocephin 09/29, continue. Add probiotic. Urology on board, plan for cystoscopy and right ureteral stent placement. Resume diet after the procedure. Acute renal failure: Creatinine seems to be uptrending since September 27, 2.04 today. Likely secondary to obstructive uropathy. Plan for cystoscopy and right ureteral stent today, labs in AM. Continue with IV fluid for now. Hold nephrotoxic's until renal functions are better. Hold home diuretic, lisinopril, and ibuprofen until creatinine back to baseline. Other chronic medical conditions: Continue with/resume home meds as and when able. hypertension, stable hyperlipidemia, not on statin Rx SIXTO on CPAP DM2 on oral medications, unknown baseline control gout, stable on regimen DVT prophylaxis. Heparin subcu Full code Dispo: pending Cr improvement. Admission and Anticipated Discharge Date Admission Date: September 29, 2024 Subjective Patient was seen and examined at bedside. Patient was lying in bed, on room air, NAD, resting comfortably. Patient reports improvement in his right-sided belly pain significantly. Patient denies fever/headache/chest pain/sore throat/cough. Patient is n.p.o. for urological procedure later in the day. Physical Exam Physical Exam: GENERAL: NAD, obese, no respiratory distress SKIN: Normal color, warm HEENT: Alopecia, bespectacled, pink palpebral conjunctivae, no ptosis, moist buccal mucosa NECK : Supple, no tenderness CHEST : CTA, no tenderness HEART : RRR, no obvious murmurs ABDOMEN: No distention, RLQ tenderness - improved EXTREMITIES : No LE swelling/tenderness, palpable pulses, no other conspicuous deformities noted NEUROLOGIC : Coherent, no facial asymmetry, no other gross focality Results & Data Results & Data Vital Signs (Past 12 Hours) Vital Signs Pulse Pulse Resp BP BP Pulse Ox O2 Del Method 09/30/24 08:35 60 20 115/64 94 Room Air 09/30/24 06:16 66 09/30/24 06:06 65 18 105/57 L 93 Room Air 09/30/24 02:03 72 23 96 09/30/24 02:00 130/78 09/30/24 01:54 72 23 96 09/30/24 01:51 68 25 H 96 09/30/24 01:30 72 20 121/80 96 09/30/24 01:30 121/80 09/30/24 01:16 75 09/30/24 01:12 74 30 H 117/73 95 09/30/24 00:36 79 18 100/62 95 09/30/24 00:09 72 19 104/65 93
[2024-09-30 13:33] LABS: Estimated Average Glucose 134 mg/dl; Hemoglobin A1C 6.3 % (4.5-5.6)
[2024-09-30] MEDS ORDERED: LIDOCAINE 2% 2 ML VIAL/AMP(20MG/ML) INFIL ONE (13:43)
[2024-09-30] MEDS ORDERED: ONDANSETRON INJ 2 MG/ML 2 ML VIAL ONE (13:43)
[2024-09-30] MEDS ORDERED: fentaNYL citrate PF 100 MCG/2 ML VIAL ONE (13:43)
[2024-09-30] MEDS ORDERED: PROPOFOL IV EMULSION 10 MG/ML 20 ML VIAL IV ONE (13:43)
[2024-09-30] MEDS ORDERED: MIDAZOLAM HCL 1 MG/ML 2ML VIAL ONE (13:43)
--- NOTE | 2024-09-30 14:17 | Anesthesiology Consultation ---
Date of Service September 30, 2024 Assessment & Plan Chart Review Chart Review: Acceptable Risk for Surgery and Patient NOT seen in Pre Admission Testing Consults Requested none ASA ASA4 Proposed Anesthesia Anesthesia Type: General History Surgery Operation Date: 09/30/24 07:00 Proposed Procedures p Cystoscopy, Right Ureteral Stent Placement - Gopal Lorenz MD Height/Weight Height: 5 ft 9 in Weight: 109.9 kg Allergies Allergy/AdvReac Type Severity Reaction Status Date / Time No Known Allergies Allergy Verified 09/29/24 23:50 Medications Home Medications Medication Instructions Recorded Confirmed Last Taken acetaminophen 500 mg tablet 1,000 mg PO TID PRN Pain 09/29/24 09/29/24 Unknown allopurinol 300 mg tablet 300 mg PO DAILY 09/29/24 09/29/24 Unknown ceftriaxone 1 gram solution for 1 g IM DAILY 09/29/24 09/29/24 Unknown injection ceftriaxone 1 gram solution for 1 g IM Q12H 09/29/24 09/30/24 Unknown injection ceftriaxone 2 gram solution for 2 g IM DAILY 09/30/24 09/30/24 Unknown injection chlorthalidone 25 mg tablet 12.5 mg PO DAILY 09/30/24 09/30/24 Unknown colchicine 0.6 mg tablet 0.6 mg PO DAILY PRN FLARES 09/30/24 09/30/24 Unknown ibuprofen 400 mg tablet 400 mg PO TID PRN Pain 09/30/24 09/30/24 Unknown lisinopril 30 mg tablet 30 mg PO DAILY 09/30/24 09/30/24 Unknown metformin 500 mg tablet 500 mg PO BIDM 09/30/24 09/30/24 Unknown promethazine 25 mg/mL injection 25 mg IM DAILY PRN Nausea And 09/30/24 09/30/24 Unknown solution Vomiting Active Medications Generic Name Dose Route Start Last Admin Trade Name Freq PRN Reason Stop Dose Admin Allopurinol 300 mg 09/30/24 09:00 09/30/24 08:28 Allopurinol 300 Mg Tab PO 10/30/24 08:59 300 mg DAILY RONY Administration Heparin Sodium (Porcine) 5,000 units 09/30/24 06:00 09/30/24 12:32 Heparin Sod 5,000 Unit/0.5 Ml Vial SQ 10/30/24 05:59 Not Given Q8 RONY Hydromorphone HCl 1 mg 09/29/24 23:24 09/30/24 13:57 Hydromorphone Inj 1 Mg/Ml Syringe IV 10/13/24 23:23 1 mg Q4H PRN Administration Pain Sodium Chloride 1,000 mls @ 100 mls/hr 09/30/24 11:00 09/30/24 10:37 Nss IV 09/30/24 20:59 100 mls/hr .Q10H ONE Administration Insulin Aspart 0 units 09/30/24 00:00 09/30/24 11:21 Insulin Aspart Per Unit Charge SC 10/30/24 00:00 Not Given Q6 RONY Past Medical History Medical History Diabetes Hypertension HLD ARF Gout SIXTO obstructive uropathy kidney stone Right hydronephrosis Exercise / Class Metabolic Activity III < 4 Walking/Shop/Light housework Past Anesthesia History No Hx of Anesthesia Complications and No Family Hx of Anesthesia Complications History of PONV No Hx of PONV and No Hx of Motion Sickness Social History Smoking Status: Never smoker Hx Alcohol Use: No Hx Substance Use: No Physical Exam Vital Signs Last Vital Signs Temp 36.9 C 09/30/24 12:35 Pulse 78 09/30/24 12:35 Resp 18 09/30/24 12:35 BP 103/57 L 09/30/24 12:35 Pulse Ox 97 09/30/24 12:35 O2 Del Method Room Air 09/30/24 12:35 Testing Laboratory Results 09/30/24 06:22 09/30/24 08:15 Hemoglobin A1c 6.3 % (4.5-5.6) H 09/30/24 06:22 Urine Color Yellow 09/29/24 19: Urine Appearance Clear (Clear) 09/29/24 19: Urine pH 5.0 (4.5-7.5) 09/29/24: Ur Specific [place] 1.025 (1.000-1.030) 09/29/24: Urine Protein Negative (Negative) 09/29/24: Urine Glucose (UA) Negative (Negative) 09/29/24: Urine Ketones Trace (Negative) H 09/29/24 19: Urine Nitrite Negative (Negative) 09/29/24 19: Ur Leukocyte Esterase Negative (Negative) 09/29/24 19:25 09/30/24 09/30/24 11:15 06:21 POC Glucose 95 100 H Chest X-Ray Date: 09/29/24 Findings: + pulmonary vascular congestion
[2024-09-30] MEDS ORDERED: ePHEDrine sulfate 50 MG/ML AMP IV PRN (15:00)
[2024-09-30] MEDS ORDERED: ATROPINE SULFATE 0.1 MG/ML 10ML SYR IV PRN (15:00)
[2024-09-30] MEDS: ceFAZolin 2000MG 2,000 MG/15 ML SYR IV ONE (15:05)
[2024-09-30] MEDS ORDERED: PHENYLEPHRINE 100MCG/ML 5ML SYR ONE (15:21)
[2024-09-30] MEDS: DIATRIZOATE MEGLUMINE 30% 100ML VIAL INSTIL ONE (15:31)
--- NOTE | 2024-09-30 15:35 | Operative Report ---
PG Post Operative Report Pre & Post Diagnosis Operation Date: 09/30/24 07:00 Pre-Op Diagnosis: Right kidney stone, Acute right flank pain, TODD Post-Op Diagnosis: Right kidney stone, Acute right flank pain, TODD I identified the patient and participated in the time-out.: Yes Procedure Operation Date: 09/30/24 07:00 Actual Procedures p Cystoscopy, Right Ureteral Stent Placement, Retrograde pyelogram(Right) - Gopal Lorenz MD Surgeon Gopal Lorenz MD Regional Project Manager none Estimated Blood Loss 0 Findings See Below Thin film of scar tissue at the bulbar urethra, bypassed with the wire and then with the cystoscope. Bladder with evidence of incomplete emptying Successful right ureteral stent placement with turbid urine draining through the stent at the conclusion of procedure. Camacho catheter left in place to allow maximal drainage. Specimens None Drains 6 Slovak x 26 cm double-J ureteral stent in the right ureter Anesthesia Type MAC Complications none Disposition Accompanied Patient To Recovery: Yes Disposition: Recovery Room Indications This is a 48-year-old male who presented to the emergency department and was found to have a right ureteral stone as well as worsening kidney function. He is brought to the OR for right ureteral stent placement. Description of Procedure The patient was identified in the holding area and informed consent was confirmed. He was marked on the right side, then was taken to the operating room where anesthesia was initiated. He was placed in the dorsal lithotomy position with all pressure points appropriately padded. He was prepped and draped in the usual sterile fashion and a preoperative timeout was performed. A well-lubricated cystoscope was inserted per urethra and panendoscopy was performed. The pendulous urethra was normal with no strictures or mucosal abnormalities. Initially the cystoscope did not pass the bulbar urethra easily. There was a thin film of scar tissue that was blocking it. This was bypassed with a wire and then the cystoscope was advanced alongside the wire. The bladder was distended, suggesting incomplete emptying. No tumors or stones were seen. A 5 Slovak open-ended catheter was inserted and used to intubate the right ureteral orifice. A retrograde pyelogram was performed using Cystografin. The distal ureter was normal in course and caliber. There was hydronephrosis of the right kidney. A 0.038 inch zip wire was advanced up to the kidney under fluoroscopic guidance. Over the wire, a 6 Slovak x 26 cm double-J ureteral stent was advanced. When the wire was removed, there was a good curl in the kidney under fluoroscopic guidance. A curl was visualized in the bladder with the cystoscope. There was drainage of turbid urine through the stent. Due to suspicion for incomplete emptying, I placed an 18 coud catheter per urethra. The balloon was inflated with 10 cc of normal saline and catheter was attached to gravity drainage. The patient was then awakened from anesthesia and was brought to the PACU in stable condition. I attest to the content of the Intraoperative Record and any orders documented therein. Any exceptions are noted below.
[2024-09-30] MEDS: ceFAZolin 2,000 MG/15 ML IV PUSH IV ONE (16:25)
--- NOTE | 2024-09-30 16:38 | Anesthesiology Progress Note ---
Date of Service September 30, 2024 Anesthesia Post Procedure Vital Signs Vital Signs: Temp Pulse Pulse Pulse Resp BP BP 09/30/24 16:28 37.1 C 69 18 114/79 09/30/24 16:05 63 18 110/60 09/30/24 15:55 36.6 C 63 19 102/62 09/30/24 15:45 69 17 104/58 L 09/30/24 15:39 36.5 C 70 18 107/53 L 09/30/24 14:48 36.9 C 72 18 123/64 09/30/24 12:35 36.9 C 78 18 103/57 L 09/30/24 11:40 65 20 125/69 09/30/24 08:35 60 20 115/64 09/30/24 06:16 66 09/30/24 06:06 65 18 105/57 L 09/30/24 02:03 72 23 09/30/24 02:00 130/78 09/30/24 01:54 72 23 09/30/24 01:51 68 25 H 09/30/24 01:30 72 20 121/80 09/30/24 01:30 121/80 09/30/24 01:16 75 09/30/24 01:12 74 30 H 117/73 09/30/24 00:36 79 18 100/62 09/30/24 00:09 72 19 104/65 09/29/24 22:00 75 18 132/73 09/29/24 20:00 73 18 147/84 H 09/29/24 18:56 36.5 C 76 16 189/102 H Pulse Ox O2 Del Method O2 Flow Rate 09/30/24 16:28 98 Room Air 09/30/24 16:05 93 Room Air 09/30/24 15:55 95 Room Air 09/30/24 15:45 96 Oxymask 3 09/30/24 15:39 98 Oxymask 9 09/30/24 14:48 94 Room Air 09/30/24 12:35 97 Room Air 09/30/24 11:40 96 Room Air 09/30/24 08:35 94 Room Air 09/30/24 06:16 09/30/24 06:06 93 Room Air 09/30/24 02:03 96 09/30/24 02:00 09/30/24 01:54 96 09/30/24 01:51 96 09/30/24 01:30 96 09/30/24 01:30 09/30/24 01:16 09/30/24 01:12 95 09/30/24 00:36 95 09/30/24 00:09 93 09/29/24 22:00 93 Room Air 09/29/24 20:00 96 09/29/24 18:56 98 Room Air Transfer of Care Handoff Completed per policy Notes Mental Status: alert / awake / arousable Patient Amnestic to Procedure: Yes Nausea / Vomiting: adequately controlled Pain: adequately controlled Airway Patency, RR, SpO2: stable & adequate BP & HR: stable & adequate Hydration State: stable & adequate Anesthetic Complications: no major complications apparent
[2024-09-30] MEDS: oxyCODONE HCL IR 5 MG TAB (IMMEDIATE RELEASE) PO PRN (22:40)
[2024-09-30] MEDS: cefTRIAXone SODIUM 2,000 MG/50 ML BAG IV SCH (23:19)
[2024-10-01 03:56] VITALS: O2SAT 96
[2024-10-01 06:12] LABS: Hematocrit (blood only) 41.2 % (42.0-52.0); Hemoglobin 13.4 g/dl (14.0-18.0); Mean Corpuscular Hemoglobin 25.9 pg (25.0-34.0); Mean Corpuscular Hgb Conc 32.5 g/dL (32.0-36.0); Mean Corpuscular Volume 79.7 fL (80.0-100.0); Platelet Count 184 K/uL (130-400); RDW Coefficient of Variation 14.2 % (11.5-14.5); RDW Standard Deviation 40.8 fL (36.4-46.3); Red Blood Count 5.17 M/uL (4.70-6.10); White Blood Count 5.29 K/ul (4.8-10.8)
[2024-10-01 06:28] LABS: BUN Creatinine Ratio 10.6 (10-20); Calcium 8.1 mg/dl (8.6-10.3); Creatinine Clr Calc Pharmacy 73.1 ml/min; Magnesium 1.7 mg/dl (1.7-2.4); Phosphorus 3.3 mg/dl (2.5-4.9)
[2024-10-01] MEDS: ACETAMINOPHEN 325 MG TAB PO PRN (07:44)
--- NOTE | 2024-10-01 08:04 | Fluoroscopy Report ---
FL retrograde includes kub CLINICAL HISTORY: CYSTO COMPARISON STUDY: None FLUOROSCOPY TIME: 6 seconds FLUOROSCOPY IMAGES: 3 EXPOSURE DOSE: 2.3 mGy FINDINGS: Fluoroscopy was provided for right ureteral stent. IMPRESSION: Intraoperative fluoroscopy. ACT 112: Negative or not required by law. Electronically signed by: Mode Winter M.D. 10/01/2024 8:02 AM
--- NOTE | 2024-10-01 10:16 | Urology Progress Note ---
Date of Service October 01, 2024 Assessment & Plan (1) Right kidney stone: (2) ARF (acute renal failure): Plan: - Pt POD#1 s/p cystoscopy and right ureteral stent placement - Doing well, progressing as expected - Afebrile, hemodynamically stable - Lab work reviewed - creatinine downtrendingnow 1.51, no leukocytosis - Tolerating right ureteral stent with minimal bother - Okay to d/c from perspective when medically stable - Can perform voiding trial prior to discharge or can be performed at [facility] - Recommend continue course of antibiotics as previously planned from prior hospital evaluation - Recommend d/c with Tamsulosin and Pyridium for stent management - Expected clinical course reviewed, all questions answered - Will arrange outpatient follow-up with our service to set up definitive stone treatment - will sign off, please contact our service with any additional questions or concerns Admission and Anticipated Discharge Date Admission Date: September 29, 2024 Subjective Patient seen and examined at bedside this morning with 2 guards in room. No acute issues overnight. Mild flank discomfort intermittently. Camacho intact. Notes occasional sensation of urgency. No fever or chills. No nausea or vomiting. Review of Systems Constitutional: as per Subjective / HPI Genitourinary: + as per Subjective / HPI Physical Exam Constitutional: no acute distress Respiratory: normal respiratory effort; no respiratory distress and no labored breathing Gastrointestinal (Abdomen): Inspection/Auscultation: abdomen normal to inspection Musculoskeletal: Head/Neck/Chest: normocephalic Neurologic: moves all extremities and awake Psychiatric: Orientation: alert and oriented x 3 Genitourinary: Camacho intact Results & Data Vital Signs (Past 12 Hours) Vital Signs Temp Pulse Resp BP Pulse Ox O2 Del Method 10/01/24 07:42 37.2 C 76 17 143/88 H 96 Room Air 10/01/24 03:55 36.9 C 78 18 109/68 96 Room Air 09/30/24 22:45 37.2 C PG Care Time/CCT Total # of Minutes Spent Total Time Spent with Patient: Total time spent is greater than 50% in coordination of care (as documented) at patient's floor/unit and/or counseling patient: Coding Level of Care Code 66327 SUB INP/OBS CARE 08/07MIN Diagnoses Right kidney stone N20.0 ARF (acute renal failure) N17.9
[2024-10-01 11:34] VITALS: PULSE 74; RESP 18; TEMP 98.4
--- NOTE | 2024-10-01 11:35 | Discharge Summary ---
Date of Service October 01, 2024 Admission HPI Per Admitting Provider History obtained from patient and records. Medical history significant for hypertension, hyperlipidemia, SIXTO on CPAP, DM2 on oral medications, gout, urolithiasis. 2 days ago, patient noted achy right-sided abdominal and flank pain reminiscent of kidney stone pain. No hematuria, no fever, no chills. Patient evaluated at [facility] Early pyelonephritis on CT. Patient given ceftriaxone at the ER prior to discharge back to correctional facility. Patient received IM ceftriaxone daily at facility following discharge. Recurrence of right sided abdominal and flank pain today with nausea symptoms. Poor appetite. Transient SOB from pain. Denies chest pain. No hematuria. Patient returned to ER for evaluation. IV ceftriaxone administered at the ER. 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 Admission Exam Per Admitting Provider GENERAL: Anxious, obese, no respiratory distress SKIN: Normal color, warm HEENT: Alopecia, bespectacled, pink palpebral conjunctivae, no ptosis, dry buccal mucosa NECK : Supple, no tenderness CHEST : CTA, no tenderness HEART : RRR, no obvious murmurs ABDOMEN: Some distention, RLQ tenderness EXTREMITIES : No LE swelling/tenderness, palpable pulses, no other conspicuous deformities noted NEUROLOGIC : Coherent, no facial asymmetry, no other gross focality Principal Diagnosis Obstructive uropathy, recurrent kidney stones Early right-sided pyelonephritis Acute renal failure, secondary to obstructive uropathy Discharge Exam GENERAL: NAD, obese, no respiratory distress SKIN: Normal color, warm HEENT: Alopecia, bespectacled, pink palpebral conjunctivae, no ptosis, moist buccal mucosa NECK : Supple, no tenderness CHEST : CTA, no tenderness HEART : RRR, no obvious murmurs ABDOMEN: No distention, RLQ tenderness - improved EXTREMITIES : No LE swelling/tenderness, palpable pulses, no other conspicuous deformities noted NEUROLOGIC : Coherent, no facial asymmetry, no other gross focality Discharge Data Allergies Allergy/AdvReac Type Severity Reaction Status Date / Time No Known Allergies Allergy Verified 09/30/24 14:57 Consultations 09/29/24 23:44 ED Decision to Admit Stat 09/29/24 23:49 Consult Urology Routine Procedures Performed Operation Date: 09/30/24 07:00 Actual Procedures p Cystoscopy, Right Ureteral Stent Placement, Retrograde pyelogram(Right) - Gopal Lorenz MD Ordered Studies 09/29/24 21:21 CT abd pelvis IV con only Stat 09/30/24 14:30 FL retrograde includes kub Routine Hospital Course (1) ARF (acute renal failure): 48-year-old male with PMH of HTN, HLD, SIXTO on CPAP, T2DM on oral medications, gout, urolithiasis presented with acute right-sided abdominal pain for 2 days [employer], denied hematuria/fever/chills. Patient was recently seen in the ED [09/27] for early pyelonephritis x right side and was discharged on Rocephin daily. Patient did have recurrent right-sided abdominal pain with nausea symptoms and hence presented again today to the ED. He was managed for the following: Obstructive uropathy, recurrent kidney stones Early Right sided pyelonephritis Patient presents with recurrent right-sided abdominal pain with nausea symptoms and poor appetite. Admitting CTAP with 10 mm right renal stone at proximal right ureter producing mild upstream hydroureteronephrosis. Admitting UA negative for UTI, patient was on Rocephin daily prior to this admission. See above. c/w Rocephin 09/29. c/w probiotic. Urology evaled, s/p cystoscopy and right ureteral stent placement 09/30. pt to f/u w/ uro in 2-4 weeks on dc. Tamsulosin and pyridium added on dc per uro recs. Acute renal failure: Creatinine seems to be uptrending since September 27, 2.04 on 09/30. Likely secondary to obstructive uropathy. s/p cystoscopy and right ureteral stent 09/30, Cr improved to 1.51 on 10/01. Gradually resume home meds. Other chronic medical conditions: Continue with/resume home meds as and when able. hypertension, stable hyperlipidemia, not on statin Rx SIXTO on CPAP DM2 on oral medications, unknown baseline control gout, stable on regimen DVT prophylaxis. Heparin subcu Full code The following were communicated to physician at correctional facility over the phone. Patient is being discharged with following instructions at the point of discharge: Follow-up with your primary care physician within a week time and likely you will need labs CBC/CMP/magnesium/phosphorus. You will be discharged with Camacho catheter, it can be removed in the next 5 to 7 days in coordination with your healthcare provider at correctional facility. Follow-up with urology in next 2 to 4 weeks time. Continue to utilize your Rocephin as prior to complete total of 10 days therapy -through 10/07/2024. If iv form of rocephin is available, can use iv if not can continue w/ IM form antibiotic. Take your medications as prescribed. Please make sure that you are able to get your medications today by calling your pharmacy before you leave the hospital so that your treatment continuity is not broken. Home Health Attestation I certify that this patient is under my care and that I, or a physicians bindery library technical assistant working with me, had a face to-face encounter that meets the home health [id number] encounter requirements with this patient. The encounter with the patient was in whole, or in part, for the following medical condition, which is the primary reason for home health care (list medical condition): I certify that, based on my findings, the following services are medically necessary home health services: My clinical findings support the need for the above services because: Further, I certify that my clinical findings support that this patient is homebound (i.e. absences from home require considerable and taxing effort and are for medical reasons or advent services or infrequently or of short duration when for other reasons) because: Certification for Home Health Services: Based on the above findings, I certify that this patient is confined to the home and needs intermittent retirement care, physical therapy and/or speech therapy or continues to need occupational therapy. The patient is under my care, and I have initiated the establishment of the plan of care. This patient will be followed by a physician who will periodically review the plan of care. Total Time Total Time Spent Total Time Spent (In Minutes): 35 Discharge Plan Discharge Items Patient Disposition: [facility] Reason For Visit: ARF Discharge Diagnosis: Obstructive uropathy, recurrent kidney stones Early right-sided pyelonephritis Acute renal failure, secondary to obstructive uropathy Activity: Resume your previous activity Non-emergency contact: Primary Care Provider Call non-emergency contact if: you have any medication questions, your symptoms worsen and your temperature is above 101 Follow-up/Referrals: Cruz PINA [Primary Care Provider] - Diet: Carb Consistent or DM2 Addtl Attending Provider Instructions: Follow-up with your primary care physician within a week time and likely you will need labs CBC/CMP/magnesium/phosphorus. You will be discharged with Camacho catheter, it can be removed in the next 5 to 7 days in coordination with your healthcare provider at correctional facility. Follow-up with urology in next 2 to 4 weeks time. Continue to utilize your Rocephin as prior to complete total of 10 days therapy -through 10/07/2024. If iv form of rocephin is available, can use iv if not can continue w/ IM form antibiotic. Take your medications as prescribed. Please make sure that you are able to get your medications today by calling your pharmacy before you leave the hospital so that your treatment continuity is not broken. Pending Studies at Discharge: No Stand-Alone Forms: My [facility] Skilled Items Patient informed of condition?: Yes Discharge Level of Care: Other Communicable Disease: No Discharge Prognosis: Stable Lines: None Urinary Catheter: Yes Medications and DC Order Prescriptions: New tamsulosin 0.4 mg capsule 0.4 mg PO DAILY Qty: 30 0RF phenazopyridine 200 mg tablet 200 mg PO BID PRN (Reason: dysuria) Qty: 6 0RF Continued acetaminophen 500 mg Tablet 1,000 mg PO TID PRN (Reason: Pain) allopurinol 300 mg Tablet 300 mg PO DAILY colchicine 0.6 mg Tablet 0.6 mg PO DAILY PRN (Reason: FLARES) Rx Instructions: TAKE ONE TABLET ONCE DAILY UNTIL FLARE RESOLVES, NEEDED. promethazine 25 mg/mL Solution 25 mg IM DAILY PRN (Reason: Nausea And Vomiting) ceftriaxone 2 gram Recon Soln 2 g IM DAILY Qty: 7 0RF Rx Instructions: End of Treatment: 10/07/2024 Held chlorthalidone 25 mg Tablet 12.5 mg PO DAILY Hold Instructions: Resume on 10/04/24. ibuprofen 400 mg Tablet 400 mg PO TID PRN (Reason: Pain) Hold Instructions: Resume on 10/08/24. Rx Instructions: TAKE THIS MED WITH FOOD. lisinopril 30 mg Tablet 30 mg PO DAILY Hold Instructions: Resume on 10/05/24. metformin 500 mg Tablet 500 mg PO BIDM Hold Instructions: Resume on 10/02/24. Rx Instructions: TAKE THIS MED WITH BREAKFAST AND EVENING MEAL. Discontinued ceftriaxone 1 gram Recon Soln 1 g IM DAILY Rx Instructions: ADMINISTER ONE TIME ON 09/28/2024. ceftriaxone 1 gram Recon Soln 1 g IM Q12H Rx Instructions: ADMINISTER ON 09/29/2024 Discharge Orders: Discharge Order (Routine); Ordered 10/01/24 Ordered By: Yenny Oden Admission Data Admit Date/Time: 09/29/24 23:23 Attending Provider: Yenny Oden Admit Provider: Alexander Parada Primary Care Provider: Cruz PINA Other Providers: Alexander Parada; Eduardo Carbone; Alessandra Lee; Kwabena Reyes; Beatriz Piper; Nalini Diamond; Gopal Lorenz; Nadege Roman; Efren Jackson; Hanane Zhang; Richy Juares
[2024-10-01 11:36] VITALS: BP 106/73
== END 2024-10-01 13:16 | DRG 660 ==
LOC: ED 18:48 → SUATTDRO 23:23 → EDINP 23:23 → 3E 09-30 00:20

== ENCOUNTER 2024-10-01 22:16 | Inpatient (IN) ==
[2024-10-01 23:25] LABS: Basophils # (auto) 0.03 K/uL (0.00-0.20); Basophils % (auto) 0.5 %; Eosinophils % (auto) 1.6 %; Hematocrit (blood only) 45.5 % (42.0-52.0); Hemoglobin 14.9 g/dl (14.0-18.0); Immature Granulocytes # (auto) 0.02 K/uL (0.01-0.20); Immature Granulocytes % (auto) 0.3 %; Lymphocytes # (auto) 1.82 K/uL (1.20-3.40); Lymphocytes % (auto) 29.6 %; Mean Corpuscular Hemoglobin 25.7 pg (25.0-34.0); Mean Corpuscular Hgb Conc 32.7 g/dL (32.0-36.0); Mean Corpuscular Volume 78.4 fL (80.0-100.0); Mean Platelet Volume 10.2 fL (9.4-12.4); Monocytes # (auto) 0.61 K/uL (0.11-0.59); Monocytes % (auto) 9.9 %; Neutrophils # (auto) 3.56 K/uL (1.40-6.50); Neutrophils % (auto) 58.1 %; Platelet Count 200 K/uL (130-400); RDW Coefficient of Variation 14.1 % (11.5-14.5); RDW Standard Deviation 39.7 fL (36.4-46.3); White Blood Count 6.14 K/ul (4.8-10.8)
[2024-10-01 23:37] LABS: Appearance Urine Cloudy (Clear); Bacteria Urine Automated None Seen (None Seen); Bilirubin Urine 1+ (Negative); Blood Urine 3+ (Negative); Color Urine Red; Epithelial Cell Urine Auto 0-2 /hpf (0-2); Glucose Urine UA Negative (Negative); Ketones Urine Trace (Negative); Leukocyte Esterase Urine 2+ (Negative); Nitrite Urine Negative (Negative); Protein Urine 2+ (Negative); RBC Urine Automated >20 /hpf (0-2); Specific Gravity Urine 1.023 (1.000-1.030); Urobilinogen Urine Negative (Negative); WBC Urine Automated 21-50 /hpf (0-5)
[2024-10-01 23:39] LABS: Albumin Globulin Ratio 1.4 (0.9-2); Albumin Level 4.1 gm/dl (3.4-5.0); BUN Creatinine Ratio 10.1 (10-20); Bilirubin,Total 0.7 mg/dl (0.2-1.0); Calcium 9.2 mg/dl (8.6-10.3); Creatinine Clr Calc Pharmacy 75.3 ml/min; Globulin 2.9 gm/dl (2.5-4.0); Magnesium 1.7 mg/dl (1.7-2.4); Potassium 3.5 mmol/L (3.5-5.1)
[2024-10-01 23:46] LABS: Troponin I High Sensitivity 4.1 pg/ml (0-20)
[2024-10-01 23:47] LABS: Partial Thromboplastin Time 27 Seconds (21-31); Prothrombin Time 10.8 Seconds (9.0-12.0)
[2024-10-02] MEDS: FAMOTIDINE 20MG IV PUSH 20 MG/5 ML SYR IV STA (00:45)
[2024-10-02] MEDS: MoRPHine SULFATE 4 MG/ML 1 ML CARP\\VIAL IV STA (00:45)
[2024-10-02] MEDS: SODIUM CHLORIDE 0.9% 1,000 ML IV ONE ×2 (00:45→05:28)
--- NOTE | 2024-10-02 01:10 | Emergency Department Note ---
Impression & Plan Fever, Abdominal pain, Presence of indwelling Camacho catheter, Ureterolithiasis ED Provider Note ED Provider Note NAME: RICA [id number] FRANK AGE:48 SEX: Male : 1975 ARRIVES VIA: EMS INFORMANT: Patient ED PROVIDER(s): Tammie Flanagan DO CHIEF COMPLAINT: Abdominal pain, fever HPI: This is a 48-year-old male presents emergency department from a local correctional facility due to concern for worsening abdominal pain and recurrent fever. Patient recently hospitalized for a kidney stone. He underwent placement of a ureteral stent and does have an indwelling Camacho catheter. Patient states he was just discharged yesterday. He states that he began to have recurrent pain late afternoon and then developed a fever later tonight of 102 F. He was given Tylenol 1000 mg by the [facility]. He states he also began to notice a rash. He states he was given Benadryl additionally which did help with the itching although the rash is still present. He denies any prior history of allergic reactions to any medications. He states he has been on antibiotics in the [facility] was instructed to continue giving him IV antibiotics there. He states he has pain in the right lower abdomen as well as into the right low back and states this was the side that was affected by the stone and was also where the stent was recently placed. He has not noted any blood in the urine draining into the Camacho catheter. He denies nausea, vomiting, chest pain, difficulty breathing, or URI symptoms. PAST MEDICAL HISTORY:See Below PAST SURGICAL HISTORY:See Below FAMILY HISTORY:See Below SOCIAL HISTORY:See Below HOME MEDICATIONS:See Below ALLERGIES:See Below VITALS:See Below PHYSICAL EXAMINATION: GENERAL: alert, well appearing, well nourished, no distress, non-toxic EYE EXAM: normal conjunctiva, PERRL and EOM's grossly intact OROPHARYNX: no exudate, no erythema, lips, buccal mucosa, and tongue normal and mucous membranes are moist NECK: supple, no nuchal rigidity, no adenopathy, non-tender LUNGS: Clear to auscultation. Normal chest wall mechanics, no w/r/r HEART: no murmurs, S1 normal and S2 normal ABDOMEN: abdomen soft, non-tender, normo-active bowel sounds, no masses, no rebound or guarding. BACK: Back is symmetrical on inspection and there is no deformity, no midline tenderness, no CVA tenderness. SKIN: no petechiae, orbruising; patchy nonblanching macular erythematous rash noted to trunk, upper back, and a few patches to bilateral upper extremities, no involvement of the lower extremities, no skin sloughing, no vesicles, no bullae UPPER EXTREMITIES: upper extremities are grossly normal. FROM, nml pulses b/l. LOWER EXTREMITIES: No pitting edema. FROM, nml pulses b/l. NEURO EXAM: Normal sensorium, cranial nerves II-XII grossly intact, normal speech, no facial droop,nogross weakness of arms, no gross weakness of legs. Gross sensation intact. No ataxia. Vital Signs: reviewed and remarkable Differential Diagnosis: Stent dislodgment, UTI, pyelonephritis, ureteral spasm, renal colic, constipation, bowel obstruction, perforation, as well as others were considered MEDICAL DECISION MAKING: This is a 48-year-old male who presents emergency room due to concern for fever and recurrent right lower quadrant abdominal pain and right low back pain. Patient with recent admission for ureterolithiasis with TODD and placement of ureteral stent as well as Camacho catheter. Patient is also a diabetic. Patient been has been getting IV antibiotics and had a breakthrough seizure tonight at 102 F per [facility]. He was afebrile and vital signs were stable on arrival. Labs drawn and sent, IV established, x-rays performed at bedside and interpreted by me and patient monitored on telemetry. Patient started on IV fluids and given IV morphine and IV Tylenol for pain. Patient's TODD noted to be improving, his lactic acid and procalcitonin are reassuring. Blood culture and urine culture sent. Due to concern for increased risk of worsening infection given diabetic status, recent procedure, and indwelling Camacho catheter, case discussed with physician market research assistant covering urology. He shared similar concern and recommended inpatient evaluation and they will see in consult. He did see the patient while in the emergency department. Patient updated on results and plan. No prior urine cultures noted to confirm that the patient's IV Rocephin will cover potential infection. Patient also noted to be having a possible allergic reaction in the form of a rash. Consultation(s): 311: Discussed with Victoriano Wise PA-C, with urology. He will see the patient in the emergency department. 344: DIscussed with Ina Amadorer hospitalist team, for additional evaluation and management. ER Treatment Provided: See below Diagnostics Interpreted By Me: -Cardiac Monitoring: An order was placed for continuous cardiac monitoring. The monitor shows a rate of 72 with normall sinus rhythm. -Laboratory studies: As stated above and show below. -Imaging studies: KUB: ureteral stent seen, ureterolithiasis noted in proximal ureter Triage Nursing Note Reviewed Prior/Outside Records Reviewed Past Med/Surg History Problem List (Updated 10/02/24 @ 08:49 by Alexander Parada MD) Complicated UTI (urinary tract infection) Ureterolithiasis (Acute) Presence of indwelling Camacho catheter (Acute) Abdominal pain (Acute) Fever (Acute) ARF (acute renal failure) Right kidney stone (Acute) Acute right flank pain (Acute) Acute pyelonephritis (Acute) Medical History Diabetes Hypertension Social History Smoking Status: Never smoker Hx Alcohol Use: No Hx Substance Use: No Preferred Language: Lithuanian Communication Ability: Effective Balloon Maker Required: No Beliefs That Will Affect Care: None Current Living Situation: Other Current Living Situation Comment: [facility] Feels Safe at Home: Yes Assistive Devices: CPAP Allergies Allergies Allergy/AdvReac Type Severity Reaction Status Date / Time No Known Allergies Allergy Verified 10/02/24 01:18 Home Meds Home Medications Medication Instructions Recorded Confirmed acetaminophen 500 mg tablet 1,000 mg PO TID PRN Pain 09/29/24 10/02/24 allopurinol 300 mg tablet 300 mg PO DAILY 09/29/24 10/02/24 chlorthalidone 25 mg tablet 12.5 mg PO DAILY 09/30/24 10/02/24 colchicine 0.6 mg tablet 0.6 mg PO DAILY PRN FLARES 09/30/24 10/02/24 lisinopril 30 mg tablet 30 mg PO DAILY 09/30/24 10/02/24 metformin 500 mg tablet 500 mg PO BIDM 09/30/24 10/02/24 diphenhydramine HCl 25 mg capsule 25 mg PO BID PRN Itching 10/02/24 10/02/24 (Benadryl) phenazopyridine 200 mg tablet 200 mg PO BID 10/02/24 10/02/24 Previous Rx's Medication Instructions Recorded ceftriaxone 2 gram solution for 2 g IM DAILY #7 ea 10/01/24 injection tamsulosin 0.4 mg capsule 0.4 mg PO DAILY #30 caps 10/01/24 Results & Data (ED) Vital Signs Vital Signs - 24 hr 10/01/24 22:29 10/01/24 23:41 10/01/24 23:43 Temperature 37.2 C Temperature Source Oral Pulse Rate 85 72 Pulse Rate [Apical] 72 Respiratory Rate 18 16 Respiratory Effort / Characteristics Non-Labored Spontaneous Non-Labored Spontaneous Respiratory Depth Normal Normal Respiratory Pattern Regular Regular Blood Pressure 205/113 H Blood Pressure Mean 143 Pulse Oximetry 96 98 Oxygen Delivery Method Room Air Room Air Sepsis Recent Fever Within 48 Hours Yes Sepsis New/Unexplained Change in Mental Status N/A Sepsis Action Taken by Nursing No Action Required 10/02/24 00:07 10/02/24 01:03 10/02/24 02:09 Temperature Temperature Source Pulse Rate 71 66 63 Pulse Rate [Apical] Respiratory Rate 20 22 19 Respiratory Effort / Characteristics Respiratory Depth Respiratory Pattern Blood Pressure 150/85 H 142/82 H Blood Pressure Mean 110 102 Pulse Oximetry 97 95 95 Oxygen Delivery Method Room Air Room Air Room Air Sepsis Recent Fever Within 48 Hours Sepsis New/Unexplained Change in Mental Status Sepsis Action Taken by Nursing 10/02/24 03:00 Temperature Temperature Source Pulse Rate 60 Pulse Rate [Apical] Respiratory Rate 20 Respiratory Effort / Characteristics Respiratory Depth Respiratory Pattern Blood Pressure 136/80 Blood Pressure Mean 98 Pulse Oximetry 98 Oxygen Delivery Method Room Air Sepsis Recent Fever Within 48 Hours Sepsis New/Unexplained Change in Mental Status Sepsis Action Taken by Nursing Laboratory Data 10/03/24 06:09 10/03/24 06:09 Lab Results 10/01/24 10/01/24 Range/Units 22:50 23:10 WBC 6.14 (4.8-10.8) K/ul RBC 5.80 (4.70-6.10) M/uL Hgb 14.9 (14.0-18.0) g/dl Hct 45.5 (42.0-52.0) % MCV 78.4 L (80.0-100.0) fL MCH 25.7 (25.0-34.0) pg MCHC 32.7 (32.0-36.0) g/dL RDW Std Deviation 39.7 (36.4-46.3) fL RDW Coeff of Madie 14.1 (11.5-14.5) % Plt Count 200 (130-400) K/uL MPV 10.2 (9.4-12.4) fL Immature Gran % (Auto) 0.3 % Neut % (Auto) 58.1 % Lymph % (Auto) 29.6 % Zavala % (Auto) 9.9 % Eos % (Auto) 1.6 % Baso % (Auto) 0.5 % Neut # (Auto) 3.56 (1.40-6.50) K/uL Lymph # (Auto) 1.82 (1.20-3.40) K/uL Zavala # (Auto) 0.61 H (0.11-0.59) K/uL Eos # (Auto) 0.10 (0.00-0.50) K/uL Baso # (Auto) 0.03 (0.00-0.20) K/uL Immature Gran # (Auto) 0.02 (0.01-0.20) K/uL PT 10.8 (9.0-12.0) Seconds INR 1.0 (0.9-1.1) APTT 27 (21-31) Seconds PTT Ratio 1.0 Sodium 139 (136-145) mmol/L Potassium 3.5 (3.5-5.1) mmol/L Chloride 105 (98-107) mmol/L Carbon Dioxide 26 (21-32) mmol/L Anion Gap 8 (3-11) BUN 15 (6-23) mg/dl Creatinine 1.48 H (0.6-1.4) mg/dl Est Cr Clr Drug Dosing 75.3 ml/min eGFR 58.00 BUN/Creatinine Ratio 10.1 (10-20) Glucose 98 (70-99(Fasting)) mg/dl Lactate 1.3 (0.4-2.0) mmol/L Calcium 9.2 (8.6-10.3) mg/dl Magnesium 1.7 (1.7-2.4) mg/dl Total Bilirubin 0.7 (0.2-1.0) mg/dl AST 20 (13-39) U/L ALT 20 (7-52) U/L Alkaline Phosphatase 63 (34-104) U/L Troponin I High Sens 4.1 (0-20) pg/ml Total Protein 7.0 (6.0-8.3) gm/dl Albumin 4.1 (3.4-5.0) gm/dl Globulin 2.9 (2.5-4.0) gm/dl Albumin/Globulin Ratio 1.4 (0.9-2) Procalcitonin 0.11 (0-0.5) ng/ml Urine Color Red Urine Appearance Cloudy A (Clear) Urine pH 5.0 (4.5-7.5) Ur Specific [place] 1.023 (1.000-1.030) Urine Protein 2+ H (Negative) Urine Glucose (UA) Negative (Negative) Urine Ketones Trace H (Negative) Urine Blood 3+ H (Negative) Urine Nitrite Negative (Negative) Urine Bilirubin 1+ H (Negative) Urine Urobilinogen Negative (Negative) Ur Leukocyte Esterase 2+ H (Negative) Urine WBC (Auto) 21-50 H (0-5) /hpf Urine RBC (Auto) >20 H (0-2) /hpf U Hyaline Cast (Auto) 3-5 H (0-2) /lpf U Epithel Cells (Auto) 0-2 (0-2) /hpf Urine Bacteria (Auto) None Seen (None Seen) Administered Medications Allopurinol (Allopurinol 300 Mg Tab) 300 mg PO DAILY RONY Stop: 11/01/24 08:59 Last Admin: 10/03/24 08:18 Dose: 300 mg Documented By: Admin: 10/02/24 09:24 Dose: 300 mg Documented By: RAO Docusate Sodium (Docusate Sodium 100 Mg Cap) 100 mg PO BID RONY Stop: 11/01/24 20:59 Last Admin: 10/03/24 08:18 Dose: 100 mg Documented By: Admin: 10/02/24 22:11 Dose: 100 mg Documented By: PNM Enoxaparin Sodium (Enoxaparin Inj 40 Mg/0.4 Ml Syr) 40 mg SQ QAM RONY Stop: 11/01/24 08:59 Last Admin: 10/03/24 08:20 Dose: 40 mg Documented By: Admin: 10/02/24 09:23 Dose: 40 mg Documented By: RAO Hydromorphone HCl (Hydromorphone Inj 1 Mg/Ml Syringe) 1 mg IV Q6H PRN PRN Reason: Pain Stop: 10/16/24 04:20 Last Admin: 10/03/24 03:08 Dose: 1 mg Documented By: Admin: 10/02/24 22:12 Dose: 1 mg Documented By: EFREN Piperacillin Sod/Tazobactam Sod (Zosyn) 4.5 gm in 100 mls @ 25 mls/hr IV Q8H RONY; Protocol Stop: 10/12/24 09:59 Last Infusion: 10/03/24 07:13 Dose: Infused Documented By: Admin: 10/03/24 03:09 Dose: 25 mls/hr Documented By: Infusion: 10/02/24 22:56 Dose: Infused Documented By: Admin: 10/02/24 18:28 Dose: 25 mls/hr Documented By: Infusion: 10/02/24 15:00 Dose: Infused Documented By: Admin: 10/02/24 10:20 Dose: 25 mls/hr Documented By: HELIO Insulin Aspart (Insulin Aspart Per Unit Charge) 0 units SC ACHS [facility] Stop: 11/01/24 07:29 Last Admin: 10/03/24 08:22 Dose: 3 units Documented By: OSCAR Co-signed By: OPAL Admin: 10/02/24 22:12 Dose: Not Given Documented By: Admin: 10/02/24 17:10 Dose: 3 units Documented By: OSCAR Co-signed By: SOHAM Admin: 10/02/24 13:34 Dose: 2 units Documented By: SEAN Co-signed By: GAURANG Admin: 10/02/24 07:59 Dose: 3 units Documented By: HELIO Co-signed By: URSULA Oxycodone HCl (Oxycodone Hcl Ir 5 Mg Tab (Immediate Release)) 5 - 10 mg PO QID PRN PRN Reason: Pain Stop: 10/16/24 04:20 Last Admin: 10/03/24 06:07 Dose: 10 mg Documented By: NUSRAT Phenazopyridine HCl (Phenazopyridine Hcl 200 Mg Tab) 200 mg PO BID RONY Stop: 11/01/24 08:59 Last Admin: 10/03/24 08:18 Dose: 200 mg Documented By: Admin: 10/02/24 22:11 Dose: 200 mg Documented By: PNVic Admin: 10/02/24 09:23 Dose: 200 mg Documented By: HELIO Polyethylene Glycol (Polyethylene (Miralax) 17 Gm Pack) 17 gm PO DAILY RONY Stop: 11/02/24 08:59 Last Admin: 10/03/24 08:18 Dose: 17 gm Documented By: OSCAR Tamsulosin HCl (Tamsulosin Hcl 0.4 Mg Cap) 0.4 mg PO DAILY RONY Stop: 11/01/24 08:59 Last Admin: 10/02/24 09:24 Dose: 0.4 mg Documented By: HELIO Discontinued Medications Sodium Chloride (Nss) 1,000 mls @ 999 mls/hr IV .Q1H1M ONE Stop: 10/02/24 01:23 Last Infusion: 10/02/24 01:55 Dose: Infused Documented By: Admin: 10/02/24 00:45 Dose: 999 mls/hr Documented By: JOANN Famotidine (Pepcid 20mg Iv Push) 20 mg in 5 mls @ 2.5 mls/min IV NOW STA Stop: 10/02/24 00:26 Last Admin: 10/02/24 00:45 Dose: 2.5 mls/min Documented By: JOANN Sodium Chloride (Nss) 1,000 mls @ 125 mls/hr IV .Q8H RONY Stop: 10/03/24 01:59 Last Infusion: 10/02/24 08:18 Dose: Infused Documented By: Infusion: 10/02/24 07:03 Dose: 0 mls/hr Documented By: Infusion: 10/02/24 05:28 Dose: 0 mls/hr Documented By: Admin: 10/02/24 02:18 Dose: 125 mls/hr Documented By: JOANN Acetaminophen (Ofirmev) 1,000 mg in 100 mls @ 400 mls/hr IV NOW STA Stop: 10/02/24 02:12 Last Infusion: 10/02/24 02:38 Dose: Infused Documented By: Admin: 10/02/24 02:18 Dose: 400 mls/hr Documented By: JOANN Piperacillin Sod/Tazobactam Sod (Zosyn) 4.5 gm in 100 mls @ 200 mls/hr IV NOW ONE; Protocol Stop: 10/02/24 04:04 Last Infusion: 10/02/24 04:55 Dose: Infused Documented By: Admin: 10/02/24 03:50 Dose: 200 mls/hr Documented By: JOANN Sodium Chloride (Nss) 1,000 mls @ 100 mls/hr IV .Q10H ONE Stop: 10/02/24 14:38 Last Infusion: 10/02/24 15:39 Dose: Infused Documented By: Admin: 10/02/24 05:28 Dose: 100 mls/hr Documented By: JOANN Loratadine (Loratadine 10 Mg Tab) 10 mg PO NOW ONE Stop: 10/02/24 04:24 Last Admin: 10/02/24 05:28 Dose: 10 mg Documented By: JOANN Morphine Sulfate (Morphine Sulfate 4 Mg/Ml 1 Ml Carp\Vial) 4 mg IV NOW STA Stop: 10/02/24 00:24 Last Admin: 10/02/24 00:45 Dose: 4 mg Documented By: JOANN Polyethylene Glycol (Polyethylene (Miralax) 17 Gm Pack) 17 gm PO DAILY STA Stop: 10/02/24 16:15 Last Admin: 10/02/24 16:38 Dose: 17 gm Documented By: OSCAR Imaging Data Radiologist's Impression: Chest X-Ray 10/01/24 22:34 Exam(s): XR CXR 1 VIEW EXAM: XR Chest, 1 View CLINICAL HISTORY: Reason for exam: Sepsis. TECHNIQUE: Frontal view of the chest. COMPARISON: No relevant prior studies available. FINDINGS: Lungs: Moderate peribronchial thickening of the central and lower lobe bronchi with increased interstitial opacities in the lower lobes. No consolidation. Pleural space: Unremarkable. No pneumothorax. Heart: Unremarkable. No cardiomegaly. Mediastinum: Unremarkable. Normal mediastinal contour. Bones/joints: Unremarkable. No acute fracture. IMPRESSION: Bronchitis, which may be of infectious or inflammatory etiologies. No consolidation or pleural effusion. Electronically signed by: Tila Leon MD 10/02/24 01:23 AM KUB X-Ray 10/02/24 00:26 EXAM: XR KUB/Abdomen 1 view CLINICAL HISTORY: recent stone/stent placed TECHNIQUE: X-ray images of the abdomen were obtained in supine and upright positions. COMPARISON: 09/29/2024 CT. FINDINGS: Right-sided nephro ureteric stent in situ, appears to be in optimal position A radiodensity of 6.8 mm seen in the right ureteric area adjacent to the right L2 transverse process represents a calculus, stable since recent CT of 09/29/2024 Non appreciable tiny 1.0 mm calcific foci seen in the left renal mid lower pole region on recent CT scan Gas Pattern: Gas pattern within the abdomen is normal. No evidence of bowel obstruction or distention. Soft Tissues: Soft tissues of the abdomen appear normal without evidence of masses Liver, spleen, and kidneys are of normal size and position. IMPRESSION: 1. Right-sided nephro-ureteric stent in situ, appears to be in the optimal position, new finding. 2. Redemonstration of the 6.5 mm calculus in the proximal right ureter, at the level of L2 right sided transverse process, stable since recent CT of 09/29/2024 3. Non-appreciable left renal microliths/concretions on this current radiograph, likely obscured by overlying soft tissues/bowel gas. 4. Normal bowel gas pattern. Electronically signed by Obdulio Reid 10-02-2024 01:46 AM Discharge Plan Visit Data Chief Complaint: Illness Stated Complaint: FEVER, HIVES ED Provider: Tammie Flanagan Discharge Problem: Fever, Abdominal pain, Presence of indwelling Camacho catheter, Ureterolithiasis Patient Disposition: Admitted As Inpatient Discharge Instructions Interventions: ED Discharge Assessment Last Done: 10/02/24 05:31
--- NOTE | 2024-10-02 01:24 | XRay Report ---
Exam(s): XR CXR 1 VIEW EXAM: XR Chest, 1 View CLINICAL HISTORY: Reason for exam: Sepsis. TECHNIQUE: Frontal view of the chest. COMPARISON: No relevant prior studies available. FINDINGS: Lungs: Moderate peribronchial thickening of the central and lower lobe bronchi with increased interstitial opacities in the lower lobes. No consolidation. Pleural space: Unremarkable. No pneumothorax. Heart: Unremarkable. No cardiomegaly. Mediastinum: Unremarkable. Normal mediastinal contour. Bones/joints: Unremarkable. No acute fracture. IMPRESSION: Bronchitis, which may be of infectious or inflammatory etiologies. No consolidation or pleural effusion. Electronically signed by: Tila Leon MD 10/02/24 01:23 AM
--- NOTE | 2024-10-02 01:46 | XRay Report ---
EXAM: XR KUB/Abdomen 1 view CLINICAL HISTORY: recent stone/stent placed TECHNIQUE: X-ray images of the abdomen were obtained in supine and upright positions. COMPARISON: 09/29/2024 CT. FINDINGS: Right-sided nephro ureteric stent in situ, appears to be in optimal position A radiodensity of 6.8 mm seen in the right ureteric area adjacent to the right L2 transverse process represents a calculus, stable since recent CT of 09/29/2024 Non appreciable tiny 1.0 mm calcific foci seen in the left renal mid lower pole region on recent CT scan Gas Pattern: Gas pattern within the abdomen is normal. No evidence of bowel obstruction or distention. Soft Tissues: Soft tissues of the abdomen appear normal without evidence of masses Liver, spleen, and kidneys are of normal size and position. IMPRESSION: 1. Right-sided nephro-ureteric stent in situ, appears to be in the optimal position, new finding. 2. Redemonstration of the 6.5 mm calculus in the proximal right ureter, at the level of L2 right sided transverse process, stable since recent CT of 09/29/2024 3. Non-appreciable left renal microliths/concretions on this current radiograph, likely obscured by overlying soft tissues/bowel gas. 4. Normal bowel gas pattern. Electronically signed by Obdulio Reid 10-02-2024 01:46 AM
[2024-10-02] MEDS: ACETAMINOPHEN 1,000 MG/100 ML VIAL IV STA (02:18)
[2024-10-02] MEDS: SODIUM CHLORIDE 0.9% 1,000 ML IV SCH (02:18)
--- NOTE | 2024-10-02 03:25 | Urology Consultation ---
Date of Consultation October 02, 2024 Assessment & Plan (1) Ureterolithiasis: I discussed with the treating clinician emergency department the patient is being admitted on the hospitalist service. From a urologic perspective we recommend the following: Provide analgesics Provide antiemetics The treating physician the emergency department is that she is planning on treating with antibiotics in the form of Rocephin. Antibiotic should continue and can be tailored based on culture results At the present time patient is nontoxic-appearing and is not in need of emergent procedural intervention Would recommend following serial labs Would recommend hydrating with IV fluids Additional recommendations with forthcoming based on his clinical course as unfolds History of Present Illness Reason for Consultation: History of ureteral stent History of Present Illness This is a 48-year-old male who underwent a recent urologic procedure by Dr. Lorenz of [facility] physician group urology. On 09/30/2024 Dr. Lorenz performed a right ureteral stent placement secondary to a right-sided kidney stone. Patient was discharged to his correctional facility on 10/01/2024. The patient Karen presented to the emergency department on 10/02/2024 secondary to right-sided abdominal pain along with fevers. He denies any back or flank pain. He denies any nausea or vomiting. The patient notes that he was discharged with a Camacho catheter in place which is draining appropriately. Since arrival to the hospital he has had labs and imaging which independent reviewed. He had a chest x-ray that showed no evidence of pneumonia. KUB was performed that showed a right sided ureteral stent which appears to be in appropriate position. Labs include a CBC were white blood cell count, hemoglobin, hematocrit, platelet count were normal. Chemistry profile showed sodium and potassium are normal. His BUN was not elevated and his creatinine had a slight elevation of 1.4. (This is improved from values that were noted when he was previously hospitalized). Urinalysis did show 2+ leukocyte Estrace but was negative for nitrites. There is pyuria with 21-50 white blood cells per high-power field. There is no bacteria noted on this study. At the time of my interview he was resting comfortably in bed he was in no distress. Allergies Allergy/AdvReac Type Severity Reaction Status Date / Time No Known Allergies Allergy Verified 10/02/24 01:18 Home Medications Medication Instructions Recorded Confirmed Type acetaminophen 500 mg tablet 1,000 mg PO TID PRN Pain 09/29/24 10/02/24 History allopurinol 300 mg tablet 300 mg PO DAILY 09/29/24 10/02/24 History chlorthalidone 25 mg tablet 12.5 mg PO DAILY 09/30/24 10/02/24 History colchicine 0.6 mg tablet 0.6 mg PO DAILY PRN FLARES 09/30/24 10/02/24 History lisinopril 30 mg tablet 30 mg PO DAILY 09/30/24 10/02/24 History metformin 500 mg tablet 500 mg PO BIDM 09/30/24 10/02/24 History ceftriaxone 2 gram solution for 2 g IM DAILY #7 ea 10/01/24 10/02/24 Rx injection tamsulosin 0.4 mg capsule 0.4 mg PO DAILY #30 caps 10/01/24 10/02/24 Rx diphenhydramine HCl 25 mg capsule 25 mg PO BID PRN Itching 10/02/24 10/02/24 History (Benadryl) phenazopyridine 200 mg tablet 200 mg PO BID 10/02/24 10/02/24 History Patient History Medical History Diabetes Hypertension Social History Smoking Status: Never smoker Hx Alcohol Use: No Hx Substance Use: No Preferred Language: Luxembourgish Communication Ability: Effective Bulk Delivery Driver Required: No Beliefs That Will Affect Care: None Current Living Situation Comment: [facility] Feels Safe at Home: Yes Review of Systems Review of Systems: All systems reviewed & are unremarkable except as noted in HPI & below Physical Exam Constitutional: WD/WN, vitals as above Eyes: Wears glasses ENMT: Ears: no hearing impairment and no external ear abnormality Mouth: no oropharynx abnormality Neck: trachea midline Respiratory: normal respiratory effort; no respiratory distress and no labored breathing Cardiovascular: Rate/Rhythm: regular rate and regular rhythm Gastrointestinal (Abdomen): At the time of my exam the patient's abdomen was soft without distention or rigidity. There is no pain with palpation Musculoskeletal: No calf tenderness Skin: no rashes Neurologic: moves all extremities Psychiatric: A+Ox3, euthymic affect Genitourinary: No CVA tenderness with percussion bilaterally Results & Data Vital Signs (Past 12 Hours) Vital Signs Temp Pulse Pulse Resp BP Pulse Ox O2 Del Method 10/02/24 03:00 60 20 136/80 98 Room Air 10/02/24 02:09 63 19 142/82 H 95 Room Air 10/02/24 01:03 66 22 95 Room Air 10/02/24 00:07 71 20 150/85 H 97 Room Air 10/01/24 23:43 72 10/01/24 23:41 72 16 98 Room Air 10/01/24 22:29 37.2 C 85 18 205/113 H 96 Room Air PG Care Time/CCT Total # of Minutes Spent Total Time Spent with Patient: Total time spent is greater than 50% in coordination of care (as documented) at patient's floor/unit and/or counseling patient: Coding Level of Care Code 53706 IN/OBS CONSULT LVL 5,80M Diagnoses Ureterolithiasis N20.1
[2024-10-02] MEDS: PIPERACILLIN/TAZOBACTAM 4.5 GM/100 ML BAG IV ONE (03:50)
--- NOTE | 2024-10-02 04:19 | History & Physical Report ---
Date of Service October 02, 2024 Assessment & Plan (1) Complicated UTI (urinary tract infection): Plan: Complicated UTI Recent stent placement for recurrent obstructive uropathy Failed ceftriaxone Rx No sepsis for now hypertension, stable ARF, improved renal function from discharge SIXTO on CPAP DM2 on oral medications, well-controlled as of recent hemoglobin A1c of 6.3 this week Recent hypersensitivity reaction, unknown precipitant, improved after Benadryl a dministration at correctional facility Admit to [facility] Urine CS, Luis Monitor creatinine response to IVF, hold lisinopril and home diuretics for now Urology consult re: fever, recent stent placement (Patient already seen at the ER by provider. ) ISS BG goal 1 10-1 40, carb count coverage DVT prophylaxis. Lovenox subcu Full code Text document was generated using [employer] voice recognition software. It may contain grammatical or spelling errors. Kindly contact undersigned for clarification of any documentation item in question. History of Present Illness Chief Complaint: Fever, chills Primary Care Provider: YOVANI Arroyo History obtained from patient and records. Medical history significant for hypertension, hyperlipidemia, SIXTO on CPAP, DM2 on oral medications, gout, recent pyelonephritis secondary to obstructing kidney stone status post recent stent placement on ceftriaxone Rx. Recent confinement September 29 to 2024 for early right-sided pyelonephritis secondary to obstructive kidney stone. Status post cystoscopy and right ureteral stent placement. No growth on cultures. Patient discharged back to correctional facility yesterday on ceftriaxone course. Yesterday afternoon, patient noted an itchy rash over his abdomen and arms. No chest pain, or SOB. Not sure what precipitated allergic reaction. Improved rash with Benadryl administration at correctional facility. Later that night, patient had fever chills, temperature of 102.4. Patient brought to ER for evaluation. Mild achy right-sided discomfort at the ER without hematuria symptoms. 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 Allergies Allergy/AdvReac Type Severity Reaction Status Date / Time No Known Allergies Allergy Verified 10/02/24 01:18 Home Medications Medication Instructions Recorded Confirmed Type acetaminophen 500 mg tablet 1,000 mg PO TID PRN Pain 09/29/24 10/02/24 History allopurinol 300 mg tablet 300 mg PO DAILY 09/29/24 10/02/24 History chlorthalidone 25 mg tablet 12.5 mg PO DAILY 09/30/24 10/02/24 History colchicine 0.6 mg tablet 0.6 mg PO DAILY PRN FLARES 09/30/24 10/02/24 History lisinopril 30 mg tablet 30 mg PO DAILY 09/30/24 10/02/24 History metformin 500 mg tablet 500 mg PO BIDM 09/30/24 10/02/24 History ceftriaxone 2 gram solution for 2 g IM DAILY #7 ea 10/01/24 10/02/24 Rx injection tamsulosin 0.4 mg capsule 0.4 mg PO DAILY #30 caps 10/01/24 10/02/24 Rx diphenhydramine HCl 25 mg capsule 25 mg PO BID PRN Itching 10/02/24 10/02/24 History (Benadryl) phenazopyridine 200 mg tablet 200 mg PO BID 10/02/24 10/02/24 History Past Med/Surg History Problem List (Updated 10/02/24 @ 08:49 by Alexander Parada MD) Complicated UTI (urinary tract infection) Ureterolithiasis (Acute) Presence of indwelling Camacho catheter (Acute) Abdominal pain (Acute) Fever (Acute) ARF (acute renal failure) Right kidney stone (Acute) Acute right flank pain (Acute) Acute pyelonephritis (Acute) Medical History Diabetes Hypertension Social History Smoking Status: Never smoker Hx Alcohol Use: No Hx Substance Use: No Preferred Language: Uzbek Communication Ability: Effective Wheel Of Fortune Dealer Required: No Beliefs That Will Affect Care: None Current Living Situation: Other Current Living Situation Comment: YOVANI Arroyo Feels Safe at Home: Yes Assistive Devices: CPAP Review of Systems Review of Systems: As per HPI, all other systems reviewed and negative Physical Exam Physical Exam: GENERAL: obese, pleasant, no respiratory distress SKIN: Maculopapular rash over trunk and upper extremities, normal color, warm HEENT: Alopecia, bespectacled, pink palpebral conjunctivae, no ptosis, dry buccal mucosa NECK : Supple, no tenderness CHEST : CTA, no tenderness HEART : RRR, no obvious murmurs ABDOMEN: Some distention, minimal RLQ tenderness EXTREMITIES : No LE swelling/tenderness, palpable pulses, no other conspicuous deformities noted NEUROLOGIC : Coherent, no facial asymmetry, no other gross focality Results & Data Results & Data Vital Signs (Past 12 Hours) Vital Signs Temp Pulse Pulse Resp BP Pulse Ox O2 Del Method 10/02/24 03:46 68 10/02/24 03:00 60 20 136/80 98 Room Air 10/02/24 02:09 63 19 142/82 H 95 Room Air 10/02/24 01:03 66 22 95 Room Air 10/02/24 00:07 71 20 150/85 H 97 Room Air 10/01/24 23:43 72 10/01/24 23:41 72 16 98 Room Air 10/01/24 22:29 37.2 C 85 18 205/113 H 96 Room Air Laboratory Results Laboratory Results WBC 6.14 K/ul (4.8-10.8) 10/01/24 22:50 RBC 5.80 M/uL (4.70-6.10) 10/01/24 22:50 Hgb 14.9 g/dl (14.0-18.0) 10/01/24 22:50 Hct 45.5 % (42.0-52.0) 10/01/24 22:50 MCV 78.4 fL (80.0-100.0) L 10/01/24 22:50 MCH 25.7 pg (25.0-34.0) 10/01/24 22:50 MCHC 32.7 g/dL (32.0-36.0) 10/01/24 22:50 RDW Std Deviation 39.7 fL (36.4-46.3) 10/01/24 22:50 RDW Coeff of Madie 14.1 % (11.5-14.5) 10/01/24 22:50 Plt Count 200 K/uL (130-400) 10/01/24 22:50 MPV 10.2 fL (9.4-12.4) 10/01/24 22:50 Immature Gran % (Auto) 0.3 % 10/01/24 22:50 Neut % (Auto) 58.1 % 10/01/24 22:50 Lymph % (Auto) 29.6 % 10/01/24 22:50 Haines % (Auto) 9.9 % 10/01/24 22:50 Eos % (Auto) 1.6 % 10/01/24 22:50 Baso % (Auto) 0.5 % 10/01/24 22:50 Neut # (Auto) 3.56 K/uL (1.40-6.50) 10/01/24 22:50 Lymph # (Auto) 1.82 K/uL (1.20-3.40) 10/01/24 22:50 Haines # (Auto) 0.61 K/uL (0.11-0.59) H 10/01/24 22:50 Eos # (Auto) 0.10 K/uL (0.00-0.50) 10/01/24 22:50 Baso # (Auto) 0.03 K/uL (0.00-0.20) 10/01/24 22:50 Immature Gran # (Auto) 0.02 K/uL (0.01-0.20) 10/01/24 22:50 PT 10.8 Seconds (9.0-12.0) 10/01/24 22:50 INR 1.0 (0.9-1.1) 10/01/24 22:50 APTT 27 Seconds (21-31) 10/01/24 22:50 PTT Ratio 1.0 10/01/24 22:50 Sodium 139 mmol/L (136-145) 10/01/24 22:50 Potassium 3.5 mmol/L (3.5-5.1) 10/01/24 22:50 Chloride 105 mmol/L (98-107) 10/01/24 22:50 Carbon Dioxide 26 mmol/L (21-32) 10/01/24 22:50 Anion Gap 8 (3-11) 10/01/24 22:50 BUN 15 mg/dl (6-23) 10/01/24 22:50 Creatinine 1.48 mg/dl (0.6-1.4) H 10/01/24 22:50 Est Cr Clr Drug Dosing 75.3 ml/min 10/01/24 22:50 eGFR 58.00 10/01/24 22:50 BUN/Creatinine Ratio 10.1 (10-20) 10/01/24 22:50 Glucose 98 mg/dl (70-99(Fasting)) 10/01/24 22:50 Lactate 1.3 mmol/L (0.4-2.0) 10/01/24 22:50 Calcium 9.2 mg/dl (8.6-10.3) 10/01/24 22:50 Magnesium 1.7 mg/dl (1.7-2.4) 10/01/24 22:50 Total Bilirubin 0.7 mg/dl (0.2-1.0) 10/01/24 22:50 AST 20 U/L (13-39) 10/01/24 22:50 ALT 20 U/L (7-52) 10/01/24 22:50 Alkaline Phosphatase 63 U/L (34-104) 10/01/24 22:50 Troponin I High Sens 4.1 pg/ml (0-20) 10/01/24 22:50 Total Protein 7.0 gm/dl (6.0-8.3) 10/01/24 22:50 Albumin 4.1 gm/dl (3.4-5.0) 10/01/24 22:50 Globulin 2.9 gm/dl (2.5-4.0) 10/01/24 22:50 Albumin/Globulin Ratio 1.4 (0.9-2) 10/01/24 22:50 Procalcitonin 0.11 ng/ml (0-0.5) 10/01/24 22:50 Urine Color Red 10/01/24 23:10 Urine Appearance Cloudy (Clear) A 10/01/24 23:10 Urine pH 5.0 (4.5-7.5) 10/01/24 23:10 Ur Specific Freedom 1.023 (1.000-1.030) 10/01/24 23:10 Urine Protein 2+ (Negative) H 10/01/24 23:10 Urine Glucose (UA) Negative (Negative) 10/01/24 23:10 Urine Ketones Trace (Negative) H 10/01/24 23:10 Urine Blood 3+ (Negative) H 10/01/24 23:10 Urine Nitrite Negative (Negative) 10/01/24 23:10 Urine Bilirubin 1+ (Negative) H 10/01/24 23:10 Urine Urobilinogen Negative (Negative) 10/01/24 23:10 Ur Leukocyte Esterase 2+ (Negative) H 10/01/24 23:10 Urine WBC (Auto) 21-50 /hpf (0-5) H 10/01/24 23:10 Urine RBC (Auto) >20 /hpf (0-2) H 10/01/24 23:10 U Hyaline Cast (Auto) 3-5 /lpf (0-2) H 10/01/24 23:10 U Epithel Cells (Auto) 0-2 /hpf (0-2) 10/01/24 23:10 Urine Bacteria (Auto) None Seen (None Seen) 10/01/24 23:10 Impressions Chest X-Ray 10/01/24 22:34 Exam(s): XR CXR 1 VIEW EXAM: XR Chest, 1 View CLINICAL HISTORY: Reason for exam: Sepsis. TECHNIQUE: Frontal view of the chest. COMPARISON: No relevant prior studies available. FINDINGS: Lungs: Moderate peribronchial thickening of the central and lower lobe bronchi with increased interstitial opacities in the lower lobes. No consolidation. Pleural space: Unremarkable. No pneumothorax. Heart: Unremarkable. No cardiomegaly. Mediastinum: Unremarkable. Normal mediastinal contour. Bones/joints: Unremarkable. No acute fracture. IMPRESSION: Bronchitis, which may be of infectious or inflammatory etiologies. No consolidation or pleural effusion. Electronically signed by: Tila Leon MD 10/02/24 01:23 AM KUB X-Ray 10/02/24 00:26 EXAM: XR KUB/Abdomen 1 view CLINICAL HISTORY: recent stone/stent placed TECHNIQUE: X-ray images of the abdomen were obtained in supine and upright positions. COMPARISON: 09/29/2024 CT. FINDINGS: Right-sided nephro ureteric stent in situ, appears to be in optimal position A radiodensity of 6.8 mm seen in the right ureteric area adjacent to the right L2 transverse process represents a calculus, stable since recent CT of 09/29/2024 Non appreciable tiny 1.0 mm calcific foci seen in the left renal mid lower pole region on recent CT scan Gas Pattern: Gas pattern within the abdomen is normal. No evidence of bowel obstruction or distention. Soft Tissues: Soft tissues of the abdomen appear normal without evidence of masses Liver, spleen, and kidneys are of normal size and position. IMPRESSION: 1. Right-sided nephro-ureteric stent in situ, appears to be in the optimal position, new finding. 2. Redemonstration of the 6.5 mm calculus in the proximal right ureter, at the level of L2 right sided transverse process, stable since recent CT of 09/29/2024 3. Non-appreciable left renal microliths/concretions on this current radiograph, likely obscured by overlying soft tissues/bowel gas. 4. Normal bowel gas pattern. Electronically signed by Obdulio Reid 10-02-2024 01:46 AM
[2024-10-02] MEDS ORDERED: LORazepam 0.5 MG TAB PO PRN (04:21)
--- NOTE | 2024-10-02 04:47 | CT Scan Report ---
EXAM: CT abd pelvis wo con CLINICAL HISTORY: fever, R abd pain, recent stone/stent TECHNIQUE: Multiple contiguous axial images were obtained from the level of diaphragm to the pubis symphysis. This study was acquired after the IV administration of iodinated contrast material, given the patients indications for the examination. If IV contrast material had not been administered, the likelihood of detecting abnormalities relevant to the patients condition would have been substantially decreased. Coronal and sagittal reformatted images were generated and reviewed to improve anatomic localization and optimize lesion detection. CT scan was performed according to ALARA (as low as reasonable achievable). COMPARISON: previous CT abdomen dated 09/27/2024 FINDINGS: The visualized lung bases are clear. ABDOMEN/PELVIS: The liver is normal in size and attenuation. No focal liver lesions are seen. There is no intra or extrahepatic biliary ductal dilatation. Hepatic vasculature is patent. The gallbladder is unremarkable. The spleen, pancreas, and adrenal glands are unremarkable. The kidneys are normal in size and attenuation. There is no hydronephrosis No renal masses are identified. The ureters are normal in caliber. A 9 mm calculus noted in right renal pelvis. There is double J stent noted in situ with proximal end in upper calyx and lower end in lumen of urinary bladder. There is right perinephric fat stranding noted with fat stranding around proximal right ureter as well Few tiny concretions are noted in upper and lower calyx of left kidney The bladder is empty with foleys in situ and lower end of right doube J catheter in situ as well No evidence of focal or diffuse bowel wall thickening or evidence of bowel obstruction is seen. The appendix is visualized in the right lower quadrant and appears within normal limits. No adenopathy or fluid collections are seen. The aorta is normal in caliber. No aggressive appearing osseous lesions are identified. IMPRESSION: - Right renal pelvis calculus with double J stent in situ adequatley positioned as described. New finding. - Right perinephric and right periureteric mild fat stranding - No hydronephrosis at present - Non obstructive renal concretions in left kidney as described Electronically signed by Donny Bruce 10-02-2024 04:47 AM
[2024-10-02] MEDS: LORATADINE 10 MG TAB PO ONE (05:28)
[2024-10-02] MEDS ORDERED: GLUCOSE 10 TAB/TUBE PO PRN (05:30)
[2024-10-02] MEDS ORDERED: GLUCOSE 40% GEL 15 GM TUBE PO PRN (05:30)
[2024-10-02] MEDS ORDERED: DEXTROSE 50% 50 ML SYRINGE IV PRN (05:30)
[2024-10-02] MEDS ORDERED: GLUCAGON FOR INJ 1 MG VIAL SQ PRN (05:30)
[2024-10-02] MEDS ORDERED: CARBOHYDRATES FOR HYPOGLYCEMIA PO PRN (05:30)
[2024-10-02 05:33] LABS: Basophils # (auto) 0.02 K/uL (0.00-0.20); Basophils % (auto) 0.4 %; Eosinophils # (auto) 0.13 K/uL (0.00-0.50); Eosinophils % (auto) 2.8 %; Hematocrit (blood only) 41.1 % (42.0-52.0); Hemoglobin 13.2 g/dl (14.0-18.0); Immature Granulocytes # (auto) 0.01 K/uL (0.01-0.20); Immature Granulocytes % (auto) 0.2 %; Lymphocytes # (auto) 1.68 K/uL (1.20-3.40); Lymphocytes % (auto) 36.1 %; Mean Corpuscular Hemoglobin 25.4 pg (25.0-34.0); Mean Corpuscular Hgb Conc 32.1 g/dL (32.0-36.0); Mean Corpuscular Volume 79.2 fL (80.0-100.0); Mean Platelet Volume 9.8 fL (9.4-12.4); Monocytes # (auto) 0.48 K/uL (0.11-0.59); Monocytes % (auto) 10.3 %; Neutrophils # (auto) 2.33 K/uL (1.40-6.50); Neutrophils % (auto) 50.2 %; Platelet Count 165 K/uL (130-400); RDW Coefficient of Variation 14.1 % (11.5-14.5); RDW Standard Deviation 40.2 fL (36.4-46.3); Red Blood Count 5.19 M/uL (4.70-6.10); White Blood Count 4.65 K/ul (4.8-10.8)
[2024-10-02 05:39] LABS: BUN Creatinine Ratio 10.4 (10-20); Calcium 8.2 mg/dl (8.6-10.3); Creatinine Clr Calc Pharmacy 89.2 ml/min; Potassium 3.5 mmol/L (3.5-5.1)
[2024-10-02] MEDS: INSULIN ASPART PER UNIT CHARGE SC SCH (07:59)
[2024-10-02] MEDS: PHENAZOPYRIDINE HCL 200 MG TAB PO SCH (09:23)
[2024-10-02] MEDS: ENOXAPARIN INJ 40 MG/0.4 ML SYR SQ SCH (09:23)
[2024-10-02] MEDS: TAMSULOSIN HCL 0.4 MG CAP PO SCH (09:24)
[2024-10-02] MEDS: allopurinoL 300 MG TAB PO SCH (09:24)
[2024-10-02] MEDS: PIPERACILLIN/TAZOBACTAM 4.5 GM/100 ML BAG IV SCH (10:20)
--- NOTE | 2024-10-02 12:36 | Communication Note ---
Date of Service: October 02, 2024 Patient was seen and examined at bedside. 48-year-old male with PMH of HTN, HLD, SIXTO on CPAP, T2DM on oral medications, gout, urolithiasis who was recently admitted 09/29/24-10/01/24 and was managed for Obstructive uropathy status post cystoscopy & right ureteral stent and IV antibiotic for right pyelonephritis. He was discharged on Rocephin. After d ischarge he started to notice itchy rash all over his abdomen and arms relieved with Benadryl. Later that night, he had fever and chills, temperature up to 102.4 F and hence he was brought to the ED 10/02 for evaluation. Patient reported mild achy right-sided discomfort at presentation. 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 F/u admitting urine and bl cx. c/w zosyn 10/02 for now. ID consult. Obstructive uropathy, recurrent kidney stones: Urology on board, s/p cystoscopy and right ureteral stent placement 09/30, c/w iv hydration. f/u w/ uro on dc. Other chronic medical conditions: Continue with/resume home meds as and when able. hypertension, stable, c/w home lisinopril, will hold hctz for now hyperlipidemia, not on statin Rx SIXTO on CPAP DM2 on oral medications, a1c 6.3 gout, stable on regimen DVT prophylaxis. lovenox subcu Full code for detailed information on the patient, reported today's H&P note.
[2024-10-02] MEDS ORDERED: PIPERACILLIN/TAZOBACTAM 4.5 GM/100 ML BAG IV ONE (13:00)
[2024-10-02] MEDS: POLYETHYLENE (MIRALAX) 17 GM PACK PO STA (16:38)
[2024-10-02] MEDS: DOCUSATE SODIUM 100 MG CAP PO SCH (22:11)
[2024-10-02] MEDS: HYDROmorphone INJ 1 MG/ML SYRINGE IV PRN (22:12)
[2024-10-03] MEDS: oxyCODONE HCL IR 5 MG TAB (IMMEDIATE RELEASE) PO PRN (06:07)
[2024-10-03 06:25] LABS: Hematocrit (blood only) 42.2 % (42.0-52.0); Hemoglobin 13.6 g/dl (14.0-18.0); Mean Corpuscular Hemoglobin 25.6 pg (25.0-34.0); Mean Corpuscular Hgb Conc 32.2 g/dL (32.0-36.0); Mean Corpuscular Volume 79.3 fL (80.0-100.0); Mean Platelet Volume 9.8 fL (9.4-12.4); Platelet Count 179 K/uL (130-400); RDW Coefficient of Variation 14.2 % (11.5-14.5); RDW Standard Deviation 40.5 fL (36.4-46.3); Red Blood Count 5.32 M/uL (4.70-6.10); White Blood Count 6.92 K/ul (4.8-10.8)
[2024-10-03 07:09] LABS: Potassium 4.3 mmol/L (3.5-5.1)
[2024-10-03 07:10] LABS: BUN Creatinine Ratio 8.9 (10-20); Calcium 8.8 mg/dl (8.6-10.3); Magnesium 1.7 mg/dl (1.7-2.4); Phosphorus 3.8 mg/dl (2.5-4.9)
[2024-10-03] MEDS: POLYETHYLENE (MIRALAX) 17 GM PACK PO SCH (08:18)
[2024-10-03] MEDS: lisinopril 10 MG TAB PO SCH (08:49)
[2024-10-03] MEDS: LACTULOSE SYRUP 20 GM/30 ML UDC PO ONE (13:22)
[2024-10-03] MEDS: COLCHICINE 0.6 MG TAB PO ONE (13:23)
[2024-10-03] MEDS: DICLOFENAC SOD 1% GEL 100 GM TUBE EXT SCH (13:26)
[2024-10-03] MEDS: ACETAMINOPHEN 325 MG TAB PO PRN (15:56)
--- NOTE | 2024-10-03 16:42 | Hospitalist Progress Note ---
Date of Service October 03, 2024 Assessment & Plan (1) Complicated UTI (urinary tract infection): Plan 48-year-old male with PMH of HTN, HLD, SIXTO on CPAP, T2DM on oral medications, gout, urolithiasis who was recently admitted 09/29/24-10/01/24 and was managed for Obstructive uropathy status post cystoscopy & right ureteral stent and IV antibiotic for right pyelonephritis. He was discharged on Rocephin. After discharge he started to notice itchy rash all over his abdomen and arms relieved with Benadryl. Later that night, he had fever and chills, temperature up to 102.4 F and hence he was brought to the ED 10/02 for evaluation. Patient reported mild achy right-sided discomfort at presentation. He is being managed for the following: Right sided pyelonephritis: developed fever while on rocephin BREAKER UP, admitting CTAP w/ rt renal stent in place and Right perinephric and right periureteric mild fat stranding. F/u admitting urine and bl cx. c/w zosyn 10/02 for now. ID consult. Obstructive uropathy, recurrent kidney stones: Urology on board, s/p cystoscopy and right ureteral stent placement 09/30, c/w iv hydration. f/u w/ uro on dc. Other chronic medical conditions: Continue with/resume home meds as and when able. hypertension, stable, c/w home lisinopril, will hold hctz for now hyperlipidemia, not on statin Rx SIXTO on CPAP DM2 on oral medications, a1c 6.3 gout, acute flare: Rt ankle/foot pain. colchicine and diclo gel, follow. DVT prophylaxis. lovenox subcu Full code Admission and Anticipated Discharge Date Admission Date: October 02, 2024 Subjective Patient was seen and examined at bedside. Patient was lying in bed, on room air, NAD. Patient reports improvement in his left side belly pain. Patient reports right ankle and foot pain reminiscent of his gouty attack. Colchicine started. Diclofenac gel ordered. Physical Exam Physical Exam: GENERAL: obese, pleasant, no respiratory distress SKIN: Maculopapular rash over trunk and upper extremities, normal color, warm HEENT: Alopecia, bespectacled, pink palpebral conjunctivae, no ptosis, moist buccal mucosa NECK : Supple, no tenderness CHEST : CTA, no tenderness HEART : RRR, no obvious murmurs ABDOMEN: No distention, No RLQ tenderness EXTREMITIES : No LE swelling/tenderness, palpable pulses, no other conspicuous deformities noted except Rt ankle and foot w/ mild swelling/tender rom but no erythema was noticed. NEUROLOGIC : Coherent, no facial asymmetry, no other gross focality Results & Data Results & Data Vital Signs (Past 12 Hours) Vital Signs Temp Pulse Resp BP Pulse Ox O2 Del Method 10/03/24 15:47 37.8 C H 84 18 124/74 98 Room Air 10/03/24 08:48 74 121/74 10/03/24 07:43 36.9 C 69 16 135/81 95 Room Air
[2024-10-04 06:12] LABS: Hematocrit (blood only) 40.4 % (42.0-52.0); Hemoglobin 13.4 g/dl (14.0-18.0); Mean Corpuscular Hgb Conc 33.2 g/dL (32.0-36.0); Mean Corpuscular Volume 78.4 fL (80.0-100.0); Mean Platelet Volume 9.7 fL (9.4-12.4); Platelet Count 197 K/uL (130-400); RDW Coefficient of Variation 14.1 % (11.5-14.5); RDW Standard Deviation 40.2 fL (36.4-46.3); Red Blood Count 5.15 M/uL (4.70-6.10); White Blood Count 5.79 K/ul (4.8-10.8)
[2024-10-04 06:36] LABS: BUN Creatinine Ratio 9.2 (10-20); Calcium 8.9 mg/dl (8.6-10.3); Creatinine Clr Calc Pharmacy 80.2 ml/min; Magnesium 1.9 mg/dl (1.7-2.4); Phosphorus 4.3 mg/dl (2.5-4.9)
--- NOTE | 2024-10-04 13:56 | Electrocardiogram Report ---
Test Reason : Blood Pressure : */* mmHG Vent. Rate : 81 BPM Atrial Rate : 81 BPM P-R Int : 170 ms QRS Dur : 80 ms QT Int : 358 ms P-R-T Axes : 62 30 14 degrees QTcB Int : 415 ms Normal sinus rhythm Normal ECG No previous ECGs available Confirmed by Nahum Garrido ([id number]) on 10/04/2024 1:56:39 PM Referred By: [facility] Confirmed By: Nahum Garrido
--- NOTE | 2024-10-04 14:16 | Infectious Disease Consult ---
Date of Service October 04, 2024 Attending Addendum This is a 48 y/o male w/ hx of DM2, gout, urolithiasis, and HTN who had R kidney stone s/p R ureteral stent placement (09/30/24). The patient has been on iv abx for R pyelonephritis but developed rash on CTX. The patient is currently on zosyn. Blood and urine cultures (10/01) NGTD. CT A/P (10/02) showed R renal pelvis calculus w/ double J stent in situ adequatley positioned and mild R perinephric and periureteric fat stranding. Fever was noted on 10/03. The patient is clinically stable w/ no specific complaint but intermittent chills. Rash is still noted skin. I agree w/ continuing zosyn for now, awaiting the culture results. It is uncommon to see allergic reaction to CTX when the patient tolerates a PCN-derivative, zosyn, but it is possible. ID will continue to follow. I saw and evaluated the patient today. I have reviewed the trainee note and agree. Telehealth Information I performed this visit using a real-time telehealth connection between my location and the patients location ([facility]). After connecting through interactive tele-video, patient was identified by name and date of and/or wristband check.Patient (or authorized healthcare contracts representative) was informed that this was a telemedicine visit and it was being conducted confidentially over secure lines. My office door was closed and no one else was present in the room with me.Patient (or authorized healthcare contracts representative) provided consent to proceed with the visit, expressed an understanding of privacy and security of the telemedicine visit, and gave permission to have a hospital contracts representative in the room in order to assist with the visit and to conduct portions of the visit, as needed. I informed the patient (or authorized healthcare contracts representative) that I reviewed their record and presented the opportunity for them to ask any questions regarding the visit today. The patient agreed to participate. Assessment & Plan (1) Complicated UTI (urinary tract infection): (2) Drug-induced skin rash: Plan Patient with recurrent fevers as well as rash after being discharged on ceftriaxone, possibly drug-induced rash, unclear if this is the cause of the fevers or not. Reasonable to continue with Zosyn for now to treat empirically while waiting for defervescence. Patient may need to complete his course with Zosyn pending clinical response. - Zosyn 4.5 g Q 8 hours IV -we will follow cultures to completion/ clinical improvement Appreciate consultation, please do not hesitate to reach out for any further questions or concerns. Dank Pleitez MD PGY5 Infectious Disease History of Present Illness History of Present Illness 48M w PMHx: Dm2, obstructive nephrolithiasis s/p R ureteral stent on September 29 discharged on Rocephin treatment. Patients presents again d/t abd pain, R flank pain, Nausea/anorexia subjective fever up to 102.4 as well as new rash that was relieved by Benadryl. KUB w/o evidence of Stent migration. Tmax 37.9, no elevation in WBC. UA w 21-50 WBC >20RBC no growth on culture. CT abd without significant findings. Allergies Allergy/AdvReac Type Severity Reaction Status Date / Time No Known Allergies Allergy Verified 10/02/24 01:18 Home Medications Medication Instructions Recorded Confirmed Type acetaminophen 500 mg tablet 1,000 mg PO TID PRN Pain 09/29/24 10/02/24 History allopurinol 300 mg tablet 300 mg PO DAILY 09/29/24 10/02/24 History chlorthalidone 25 mg tablet 12.5 mg PO DAILY 09/30/24 10/02/24 History colchicine 0.6 mg tablet 0.6 mg PO DAILY PRN FLARES 09/30/24 10/02/24 History lisinopril 30 mg tablet 30 mg PO DAILY 09/30/24 10/02/24 History metformin 500 mg tablet 500 mg PO BIDM 09/30/24 10/02/24 History ceftriaxone 2 gram solution for 2 g IM DAILY #7 ea 10/01/24 10/02/24 Rx injection tamsulosin 0.4 mg capsule 0.4 mg PO DAILY #30 caps 10/01/24 10/02/24 Rx diphenhydramine HCl 25 mg capsule 25 mg PO BID PRN Itching 10/02/24 10/02/24 History (Benadryl) phenazopyridine 200 mg tablet 200 mg PO BID 10/02/24 10/02/24 History Patient History Medical History Diabetes Hypertension Social History Smoking Status: Never smoker Hx Alcohol Use: No Hx Substance Use: No Preferred Language: Eritrean Communication Ability: Effective Manager Search Engine Required: No Beliefs That Will Affect Care: None Current Living Situation: Other Current Living Situation Comment: [facility] Feels Safe at Home: Yes Assistive Devices: None Review of Systems CONSTITUTIONAL: Denies weight loss, fever and chills. HEENT: Denies changes in vision and hearing. RESPIRATORY: Denies SOB and cough. CV: Denies palpitations and CP. GI: Denies abdominal pain, nausea, vomiting and diarrhea. : Denies dysuria and urinary frequency. MSK: Denies myalgia and joint pain. SKIN: Denies rash and pruritus. NEUROLOGICAL: Denies headache and syncope PSYCHIATRIC: Denies recent changes in mood. Denies anxiety and depression. Physical Exam GENERAL: Appears as stated age. No acute distress. Skin: Blanchable abd rash NEUROLOGIC: No focal neurological deficits. Cranial nerves grossly intact. Results & Data Vital Signs (Past 12 Hours) Vital Signs Temp Pulse Resp BP Pulse Ox O2 Del Method 10/04/24 07:23 36.6 C 70 16 129/70 95 Room Air Laboratory Results 10/01/24 23:10 Urine Culture - Final Urine,Indwelling Cath No growth - less than 1,000 colonies/mL. 10/01/24 23:05 Aerobic Blood Culture - Preliminary Blood No growth in Aerobic bottle after 48 hours. Anaerobic Blood Culture - Preliminary No growth in Anaerobic bottle after 48 hours. 10/01/24 22:50 Aerobic Blood Culture - Preliminary Blood No growth in Aerobic bottle after 48 hours. Anaerobic Blood Culture - Preliminary No growth in Anaerobic bottle after 48 hours. 10/04/24 10/04/24 10/04/24 11:30 07:21 05:54 WBC 5.79 RBC 5.15 Hgb 13.4 L Hct 40.4 L MCV 78.4 L MCH 26.0 MCHC 33.2 RDW Std Deviation 40.2 RDW Coeff of Madie 14.1 Plt Count 197 MPV 9.7 Sodium 138 Potassium 4.0 Chloride 106 Carbon Dioxide 25 Anion Gap 7 BUN 13 Creatinine 1.42 H Est Cr Clr Drug Dosing 80.2 eGFR 60.95 BUN/Creatinine Ratio 9.2 L Glucose 113 H POC Glucose 98 104 H Calcium 8.9 Phosphorus 4.3 Magnesium 1.9 10/03/24 10/03/24 20:23 16:34 WBC RBC Hgb Hct MCV MCH MCHC RDW Std Deviation RDW Coeff of Madie Plt Count MPV Sodium Potassium Chloride Carbon Dioxide Anion Gap BUN Creatinine Est Cr Clr Drug Dosing eGFR BUN/Creatinine Ratio Glucose POC Glucose 90 108 H Calcium Phosphorus Magnesium Diagnostic Findings Chest X-Ray 10/01/24 22:34 Exam(s): XR CXR 1 VIEW EXAM: XR Chest, 1 View CLINICAL HISTORY: Reason for exam: Sepsis. TECHNIQUE: Frontal view of the chest. COMPARISON: No relevant prior studies available. FINDINGS: Lungs: Moderate peribronchial thickening of the central and lower lobe bronchi with increased interstitial opacities in the lower lobes. No consolidation. Pleural space: Unremarkable. No pneumothorax. Heart: Unremarkable. No cardiomegaly. Mediastinum: Unremarkable. Normal mediastinal contour. Bones/joints: Unremarkable. No acute fracture. IMPRESSION: Bronchitis, which may be of infectious or inflammatory etiologies. No consolidation or pleural effusion. Electronically signed by: Tila Leon MD 10/02/24 01:23 AM KUB X-Ray 10/02/24 00:26 EXAM: XR KUB/Abdomen 1 view CLINICAL HISTORY: recent stone/stent placed TECHNIQUE: X-ray images of the abdomen were obtained in supine and upright positions. COMPARISON: 09/29/2024 CT. FINDINGS: Right-sided nephro ureteric stent in situ, appears to be in optimal position A radiodensity of 6.8 mm seen in the right ureteric area adjacent to the right L2 transverse process represents a calculus, stable since recent CT of 09/29/2024 Non appreciable tiny 1.0 mm calcific foci seen in the left renal mid lower pole region on recent CT scan Gas Pattern: Gas pattern within the abdomen is normal. No evidence of bowel obstruction or distention. Soft Tissues: Soft tissues of the abdomen appear normal without evidence of masses Liver, spleen, and kidneys are of normal size and position. IMPRESSION: 1. Right-sided nephro-ureteric stent in situ, appears to be in the optimal position, new finding. 2. Redemonstration of the 6.5 mm calculus in the proximal right ureter, at the level of L2 right sided transverse process, stable since recent CT of 09/29/2024 3. Non-appreciable left renal microliths/concretions on this current radiograph, likely obscured by overlying soft tissues/bowel gas. 4. Normal bowel gas pattern. Electronically signed by Obdulio Reid 10-02-2024 01:46 AM Abdomen/Pelvis CT 10/02/24 03:12 EXAM: CT abd pelvis wo con CLINICAL HISTORY: fever, R abd pain, recent stone/stent TECHNIQUE: Multiple contiguous axial images were obtained from the level of diaphragm to the pubis symphysis. This study was acquired after the IV administration of iodinated contrast material, given the patients indications for the examination. If IV contrast material had not been administered, the likelihood of detecting abnormalities relevant to the patients condition would have been substantially decreased. Coronal and sagittal reformatted images were generated and reviewed to improve anatomic localization and optimize lesion detection. CT scan was performed according to ALARA (as low as reasonable achievable). COMPARISON: previous CT abdomen dated 09/27/2024 FINDINGS: The visualized lung bases are clear. ABDOMEN/PELVIS: The liver is normal in size and attenuation. No focal liver lesions are seen. There is no intra or extrahepatic biliary ductal dilatation. Hepatic vasculature is patent. The gallbladder is unremarkable. The spleen, pancreas, and adrenal glands are unremarkable. The kidneys are normal in size and attenuation. There is no hydronephrosis No renal masses are identified. The ureters are normal in caliber. A 9 mm calculus noted in right renal pelvis. There is double J stent noted in situ with proximal end in upper calyx and lower end in lumen of urinary bladder. There is right perinephric fat stranding noted with fat stranding around proximal right ureter as well Few tiny concretions are noted in upper and lower calyx of left kidney The bladder is empty with foleys in situ and lower end of right doube J catheter in situ as well No evidence of focal or diffuse bowel wall thickening or evidence of bowel obstruction is seen. The appendix is visualized in the right lower quadrant and appears within normal limits. No adenopathy or fluid collections are seen. The aorta is normal in caliber. No aggressive appearing osseous lesions are identified. IMPRESSION: - Right renal pelvis calculus with double J stent in situ adequatley positioned as described. New finding. - Right perinephric and right periureteric mild fat stranding - No hydronephrosis at present - Non obstructive renal concretions in left kidney as described Electronically signed by Donny Bruce 10-02-2024 04:47 AM
--- NOTE | 2024-10-04 14:49 | Hospitalist Progress Note ---
Date of Service October 04, 2024 Assessment & Plan (1) Complicated UTI (urinary tract infection): Plan: 48-year-old male with PMH of HTN, HLD, SIXTO on CPAP, T2DM on oral medications, gout, urolithiasis who was recently admitted 09/29/24-10/01/24 and was managed for Obstructive uropathy status post cystoscopy & right ureteral stent and IV antibiotic for right pyelonephritis. He was discharged on Rocephin. After discharge he started to notice itchy rash all over his abdomen and arms relieved with Benadryl. Later that night, he had fever and chills, temperature up to 102.4 F and hence he was brought to the ED 10/02 for evaluation. Patient reported mild achy right-sided discomfort at presentation. 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 F/u admitting urine and bl cx. c/w zosyn 10/02 for now. ID consult pending. Obstructive uropathy, recurrent kidney stones: Urology on board, s/p cystoscopy and right ureteral stent placement 09/30, c/w iv hydration. f/u w/ uro on dc. Other chronic medical conditions: Continue with/resume home meds as and when able. hypertension, stable, c/w home lisinopril, will hold hctz for now hyperlipidemia, not on statin Rx SIXTO on CPAP DM2 on oral medications, a1c 6.3 gout, acute flare: Rt ankle/foot pain. colchicine and diclo gel, follow. DVT prophylaxis. lovenox subcu Full code Admission and Anticipated Discharge Date Admission Date: October 02, 2024 Subjective Patient was seen and examined at bedside. Patient was lying in bed, on room air, NAD. Patient reports no flank pain. Patient reports right ankle and foot pain improving. Physical Exam Physical Exam: GENERAL: obese, pleasant, no respiratory distress SKIN: Maculopapular rash over trunk and upper extremities, normal color, warm HEENT: Alopecia, bespectacled, pink palpebral conjunctivae, no ptosis, moist buccal mucosa NECK : Supple, no tenderness CHEST : CTA, no tenderness HEART : RRR, no obvious murmurs ABDOMEN: No distention, No RLQ tenderness EXTREMITIES : No LE swelling/tenderness, palpable pulses, no other conspicuous deformities noted except Rt ankle and foot w/ mild swelling/tender rom but no erythema was noticed. Tender rom improving. NEUROLOGIC : Coherent, no facial asymmetry, no other gross focality Results & Data Results & Data Vital Signs (Past 12 Hours) Vital Signs Temp Pulse Resp BP Pulse Ox O2 Del Method 10/04/24 07:23 36.6 C 70 16 129/70 95 Room Air
[2024-10-05 07:45] LABS: Hematocrit (blood only) 42.8 % (42.0-52.0); Mean Corpuscular Hemoglobin 25.8 pg (25.0-34.0); Mean Corpuscular Hgb Conc 32.7 g/dL (32.0-36.0); Mean Corpuscular Volume 78.8 fL (80.0-100.0); Mean Platelet Volume 9.9 fL (9.4-12.4); Platelet Count 217 K/uL (130-400); RDW Coefficient of Variation 14.2 % (11.5-14.5); RDW Standard Deviation 40.5 fL (36.4-46.3); Red Blood Count 5.43 M/uL (4.70-6.10); White Blood Count 4.41 K/ul (4.8-10.8)
[2024-10-05 08:06] LABS: BUN Creatinine Ratio 11.8 (10-20); Calcium 9.2 mg/dl (8.6-10.3); Creatinine Clr Calc Pharmacy 83.7 ml/min; Potassium 4.1 mmol/L (3.5-5.1)
[2024-10-05] MEDS: COLCHICINE 0.6 MG TAB PO PRN (08:49)
--- NOTE | 2024-10-05 16:28 | Hospitalist Progress Note ---
Date of Service October 05, 2024 Assessment & Plan (1) Complicated UTI (urinary tract infection): Plan: 48-year-old male with PMH of HTN, HLD, SIXTO on CPAP, T2DM on oral medications, gout, urolithiasis who was recently admitted 09/29/24-10/01/24 and was managed for Obstructive uropathy status post cystoscopy & right ureteral stent and IV antibiotic for right pyelonephritis. He was discharged on Rocephin. After discharge he started to notice itchy rash all over his abdomen and arms relieved with Benadryl. Later that night, he had fever and chills, temperature up to 102.4 F and hence he was brought to the ED 10/02 for evaluation. Patient reported mild achy right-sided discomfort at presentation. 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 F/u admitting urine and bl cx. c/w zosyn 10/02 for now. ID consult reviewed, follow cultures to end. Obstructive uropathy, recurrent kidney stones: Urology on board, s/p cystoscopy and right ureteral stent placement 09/30, c/w iv hydration. f/u w/ uro on dc. Other chronic medical conditions: Continue with/resume home meds as and when able. hypertension, stable, c/w home lisinopril, will hold hctz for now hyperlipidemia, not on statin Rx SIXTO on CPAP DM2 on oral medications, a1c 6.3 gout, acute flare: Rt ankle/foot pain. colchicine and diclo gel, follow. rt ankle pain/swelling improving well. DVT prophylaxis. lovenox subcu Full code Admission and Anticipated Discharge Date Admission Date: October 02, 2024 Subjective Patient was seen and examined at bedside. Patient was lying in bed, on room air, NAD. Patient reports no flank pain. Patient reports right ankle and foot pain improving well. Physical Exam Physical Exam: GENERAL: obese, pleasant, no respiratory distress SKIN: Maculopapular rash over trunk and upper extremities, normal color, warm HEENT: Alopecia, bespectacled, pink palpebral conjunctivae, no ptosis, moist buccal mucosa NECK : Supple, no tenderness CHEST : CTA, no tenderness HEART : RRR, no obvious murmurs ABDOMEN: No distention, No RLQ tenderness EXTREMITIES : No LE swelling/tenderness, palpable pulses, no other conspicuous deformities noted except Rt ankle and foot w/ mild swelling/tender rom but no erythema was noticed. Tender rom and swelling improving well. NEUROLOGIC : Coherent, no facial asymmetry, no other gross focality Results & Data Results & Data Vital Signs (Past 12 Hours) Vital Signs Temp Pulse Resp BP Pulse Ox O2 Del Method 10/05/24 15:07 36.8 C 72 16 133/73 95 Room Air 10/05/24 07:24 36.7 C 76 16 126/72 93 Room Air
[2024-10-06] MEDS: PROMETHAZINE 12.5 MG/50.5 ML BAG IV PRN (06:30)
[2024-10-06 07:02] LABS: Hematocrit (blood only) 42.3 % (42.0-52.0); Hemoglobin 13.8 g/dl (14.0-18.0); Mean Corpuscular Hgb Conc 32.6 g/dL (32.0-36.0); Mean Corpuscular Volume 79.8 fL (80.0-100.0); Mean Platelet Volume 10.2 fL (9.4-12.4); Platelet Count 253 K/uL (130-400); RDW Coefficient of Variation 14.4 % (11.5-14.5); RDW Standard Deviation 41.3 fL (36.4-46.3); White Blood Count 6.25 K/ul (4.8-10.8)
[2024-10-06 07:10] LABS: BUN Creatinine Ratio 12.9 (10-20); Calcium 9.3 mg/dl (8.6-10.3); Creatinine Clr Calc Pharmacy 81.3 ml/min
[2024-10-06 07:33] VITALS: RESP 18
--- NOTE | 2024-10-06 16:34 | Hospitalist Progress Note ---
Date of Service October 06, 2024 Assessment & Plan (1) Complicated UTI (urinary tract infection): Plan: 48-year-old male with PMH of HTN, HLD, SIXTO on CPAP, T2DM on oral medications, gout, urolithiasis who was recently admitted 09/29/24-10/01/24 and was managed for Obstructive uropathy status post cystoscopy & right ureteral stent and IV antibiotic for right pyelonephritis. He was discharged on Rocephin. After discharge he started to notice itchy rash all over his abdomen and arms relieved with Benadryl. Later that night, he had fever and chills, temperature up to 102.4 F and hence he was brought to the ED 10/02 for evaluation. Patient reported mild achy right-sided discomfort at presentation. 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 F/u admitting urine and bl cx. c/w zosyn 10/02 for now. ID consult reviewed, follow cultures to end. Denies any fever and/or chills and the white count is normal Urine culture is showing less than 1,000 colonies per mL Will continue current antibiotic Obstructive uropathy, recurrent kidney stones: Urology on board, s/p cystoscopy and right ureteral stent placement 09/30, c/w iv hydration. f/u w/ uro on dc. Has been complaining of more pain in the right groin Has been getting adequate pain medications without much improvement Will ask for urology reevaluation Other chronic medical conditions: Continue with/resume home meds as and when able. hypertension, stable, c/w home lisinopril, will hold hctz for now hyperlipidemia, not on statin Rx SIXTO on CPAP DM2 on oral medications, a1c 6.3 gout, acute flare: Rt ankle/foot pain. colchicine and diclo gel, follow. rt ankle pain/swelling improving well. DVT prophylaxis. lovenox subcu Full code Admission and Anticipated Discharge Date Admission Date: October 02, 2024 Subjective 10/06/2024 The patient was seen and examined in medical floor He has been complaining of more pain in the left lower quadrant and in the groin likely secondary to renal stone Has been getting pain medications without much improvement Denies any fever and/or chills Will inform urologist Review of Systems Review of Systems: All systems reviewed and are unremarkable except as noted below Physical Exam Physical Exam: Lying in bed with acute distress due to right groin pain Constitutional: well developed, well nourished, + acute distress ( due to pain in the right groin) and + ill appearing Eyes: PERRL, conjunctivae normal, anicteric sclerae ENMT: external ear and nose normal, oropharynx normal Neck: trachea midline, no thyromegaly Respiratory: no respiratory distress Auscultation: lungs clear to auscultation bilaterally Cardiovascular: Rate/Rhythm: regular rate and regular rhythm; not tachycardic Heart Sounds: normal S1 and normal S2; no murmur Extremities: no edema Gastrointestinal (Abdomen): Inspection/Auscultation: normal bowel sounds; abdomen not distended Percussion/Palpation: + abdomen tender ( mildly tender right groin area, no mass) Musculoskeletal: No acute arthritis involving any of the joint Neurologic: normal touch/pain/proprioception and moves all extremities; no focal motor deficits Lymphatic: no cervical or axillary lymphadenopathy Results & Data Results & Data Vital Signs (Past 12 Hours) Vital Signs Temp Pulse Resp BP Pulse Ox O2 Del Method 10/06/24 16:12 37.8 C H 64 18 110/67 95 Room Air 10/06/24 11:08 36.7 C 65 18 110/71 94 Room Air 10/06/24 07:30 36.7 C 61 18 96/61 L 94 Room Air Laboratory Results Short CBC 10/06/24 Range/Units 06:19 WBC 6.25 (4.8-10.8) K/ul Hgb 13.8 L (14.0-18.0) g/dl Hct 42.3 (42.0-52.0) % Plt Count 253 (130-400) K/uL BMP 10/06/24 06:19 Sodium 137 Potassium 4.0 Chloride 107 Carbon Dioxide 25 BUN 18 Creatinine 1.40 Glucose 134 H Calcium 9.3 Medications Administered Short CBC 10/06/24 Range/Units 06:19 WBC 6.25 (4.8-10.8) K/ul Hgb 13.8 L (14.0-18.0) g/dl Hct 42.3 (42.0-52.0) % Plt Count 253 (130-400) K/uL BMP 10/06/24 06:19 Sodium 137 Potassium 4.0 Chloride 107 Carbon Dioxide 25 BUN 18 Creatinine 1.40 Glucose 134 H Calcium 9.3
[2024-10-07 06:00] LABS: BUN Creatinine Ratio 14.1 (10-20); Calcium 8.9 mg/dl (8.6-10.3); Creatinine Clr Calc Pharmacy 69.9 ml/min
[2024-10-07 07:36] VITALS: O2SAT 96
--- NOTE | 2024-10-07 12:41 | Urology Progress Note ---
<Statement entered by Gopal Lorenz MD - 10/07/24 14:29> I have discussed Mr. Guevara's case with [facility] [place] and agree with the above documentation. He remains on antibiotics although urine and blood cultures are negative so far. We reviewed symptoms that he could expect from the stent being in place. We discussed eventual stone treatment. I would recommend cystoscopy, right retrograde pyelogram, right ureteroscopy with laser lithotripsy and stent exchange. We reviewed risks and benefits of surgery including bleeding, infection, need for additional procedures, injury to urinary tract, need for ureteral stent. He expressed understanding and would like to proceed with this as an outpatient. We will cancel his upcoming office visit and plan to schedule surgery instead. -Gopal Lorenz MD. Date of Service October 07, 2024 Assessment & Plan (1) Ureterolithiasis: (2) Complicated UTI (urinary tract infection): Plan - Pt POD#7 s/p cystoscopy and right ureteral stent placement - Patient is clinically feeling well today - Afebrile, hemodynamically stable - At time of visit patient denied pain, suspect that previous reported pain is likely related to right ureteral stent - Lab work reviewed - creatinine 1.63, no leukocytosis - Due to creatinine would recommend bladder scan with next void to verify emptying - If bladder scan greater than 400 cc recommend straight cath - Recommend continue course of antibiotics per primary team - Recommend daily Tamsulosin and Pyridium as needed for stent management - May add on oxybutynin as needed for possible bladder spasms - Okay to d/c from perspective when medically stable - Will arrange outpatient follow-up with our service to set up definitive stone treatment - will sign off, please contact our service with any additional questions or concerns Admission and Anticipated Discharge Date Admission Date: October 02, 2024 Subjective Patient discharged on 10/01 returned to the ER due to right-sided abdominal pain and fevers on 10/02 Patient resting comfortably in bed Denies current flank or abdominal pain Right-sided pain was 2 out of 10 this morning, (yesterday 8 out of 10) -pain only occurs when voiding Denies fevers, chills, nausea, vomiting Denies gross hematuria Admits to urinary frequency Patient had a repeat CT 10/02/2024 which showed right stent in good position Labs reviewed Creatinine 1.63 WBC 6.25 Hemoglobin 13.8 Review of Systems Constitutional: as per Subjective / HPI Genitourinary: + as per Subjective / HPI Physical Exam Constitutional: well developed and well nourished; no acute distress Respiratory: normal respiratory effort and able to speak in complete sentences Musculoskeletal: Extremities: extremities normal to inspection Psychiatric: Orientation: alert and oriented x 3 Results & Data Vital Signs (Past 12 Hours) Vital Signs Temp Pulse Resp BP Pulse Ox O2 Del Method 10/07/24 07:35 36.8 C 75 18 137/72 96 Room Air PG Care Time/CCT Total # of Minutes Spent Total Time Spent with Patient: Total time spent is greater than 50% in coordination of care (as documented) at patient's floor/unit and/or counseling patient: Coding Level of Care Code 43665 SUB INP/OBS CARE 350MIN Diagnoses Ureterolithiasis N20.1 Complicated UTI (urinary tract infection) N39.0
--- NOTE | 2024-10-07 15:07 | Hospitalist Progress Note ---
Date of Service October 07, 2024 Assessment & Plan (1) Complicated UTI (urinary tract infection): Plan: 48-year-old male with PMH of HTN, HLD, SIXTO on CPAP, T2DM on oral medications, gout, urolithiasis who was recently admitted 09/29/24-10/01/24 and was managed for Obstructive uropathy status post cystoscopy & right ureteral stent and IV antibiotic for right pyelonephritis. He was discharged on Rocephin. After discharge he started to notice itchy rash all over his abdomen and arms relieved with Benadryl. Later that night, he had fever and chills, temperature up to 102.4 F and hence he was brought to the ED 10/02 for evaluation. Patient reported mild achy right-sided discomfort at presentation. He is being managed for the following: Right sided pyelonephritis: Developed fever while on Rocephin [employer]CH[employer], Admitting CTAP w/ rt renal stent in place and Right perinephric and right periureteric mild fat stranding. F/u admitting urine and bl cx. c/w zosyn 10/02 for now. ID consult reviewed, follow cultures to end. Denies any fever and/or chills and the white count is normal Urine culture is showing less than 1,000 colonies per mL Will continue current antibiotic Discussed with the infectious disease and advised to have Cipro 500 twice daily for the next 7 days Obstructive uropathy, recurrent kidney stones: Urology on board, s/p cystoscopy and right ureteral stent placement 09/30, c/w iv hydration. f/u w/ uro on dc. Has been complaining of more pain in the right groin Has been getting adequate pain medications without much improvement Will ask for urology reevaluation Appreciate urology input and recommendation- we will keep the appointment as an outpatient Other chronic medical conditions: Continue with/resume home meds as and when able. hypertension, stable, c/w home lisinopril, will hold hctz for now hyperlipidemia, not on statin Rx SIXTO on CPAP DM2 on oral medications, a1c 6.3 gout, acute flare: Rt ankle/foot pain. colchicine and diclo gel, follow. rt ankle pain/swelling improving well. DVT prophylaxis. lovenox subcu Full code Admission and Anticipated Discharge Date Admission Date: October 02, 2024 Subjective 10/06/2024 The patient was seen and examined in medical floor He has been complaining of more pain in the left lower quadrant and in the groin likely secondary to renal stone Has been getting pain medications without much improvement Denies any fever and/or chills Will inform urologist 10/07/2024 The patient was seen and examined in medical floor He is pain in the right groin has improved a lot He has been waiting to be seen by the urologist Denies any fever and/or chills Review of Systems Review of Systems: All systems reviewed and are unremarkable except as noted below Physical Exam Physical Exam: Lying in bed with acute distress due to right groin pain Constitutional: well developed, well nourished, + acute distress ( due to pain in the right groin) and + ill appearing Eyes: PERRL, conjunctivae normal, anicteric sclerae ENMT: external ear and nose normal, oropharynx normal Neck: trachea midline, no thyromegaly Respiratory: no respiratory distress Auscultation: lungs clear to auscultation bilaterally Cardiovascular: Rate/Rhythm: regular rate and regular rhythm; not tachycardic Heart Sounds: normal S1 and normal S2; no murmur Extremities: no edema Gastrointestinal (Abdomen): Inspection/Auscultation: normal bowel sounds; abdomen not distended Percussion/Palpation: + abdomen tender ( mildly tender right groin area, no mass) Neurologic: normal touch/pain/proprioception and moves all extremities; no focal motor deficits Lymphatic: no cervical or axillary lymphadenopathy Results & Data Results & Data Vital Signs (Past 12 Hours) Vital Signs Temp Pulse Resp BP Pulse Ox O2 Del Method 10/07/24 14:23 36.9 C 76 18 133/75 96 Room Air 10/07/24 07:35 36.8 C 75 18 137/72 96 Room Air Laboratory Results [facility] 10/07/24 05:15 Sodium 136 Potassium 4.0 Chloride 105 Carbon Dioxide 26 BUN 23 Creatinine 1.63 H Glucose 107 H Calcium 8.9 Medications Administered Current Inpatient Medications Acetaminophen (Acetaminophen 325 Mg Tab) 650 mg PO Q6H PRN PRN Reason: fever or pain Stop: 11/02/24 15:49 Last Admin: 10/07/24 08:40 Dose: 650 mg Allopurinol (Allopurinol 300 Mg Tab) 300 mg PO DAILY RONY Stop: 11/01/24 08:59 Last Admin: 10/07/24 08:41 Dose: 300 mg Ciprofloxacin (Ciprofloxacin 500 Mg Tab) 500 mg PO BID RONY; Protocol Stop: 10/17/24 20:59 Colchicine (Colchicine 0.6 Mg Tab) 0.6 mg PO DAILY PRN PRN Reason: FLARES Stop: 11/03/24 08:59 Last Admin: 10/06/24 08:07 Dose: 0.6 mg Dextrose (Dextrose 50% 50 Ml Syringe) 25 - 50 ml IV UD PRN; Protocol PRN Reason: Hypoglycemia Protocol Stop: 11/01/24 05:29 Diclofenac Sodium (Diclofenac Sod 1% Gel 100 Gm Tube) 2 gm EXT Q6 RONY; Protocol Stop: 11/02/24 12:44 Last Admin: 10/07/24 11:30 Dose: Not Given Docusate Sodium (Docusate Sodium 100 Mg Cap) 100 mg PO BID [facility] Stop: 11/01/24 20:59 Last Admin: 10/07/24 08:40 Dose: 100 mg Enoxaparin Sodium (Enoxaparin Inj 40 Mg/0.4 Ml Syr) 40 mg SQ QAM [facility] Stop: 11/01/24 08:59 Last Admin: 10/07/24 08:40 Dose: 40 mg Glucagon (Glucagon For Inj 1 Mg Vial) 1 mg SQ UD PRN; Protocol PRN Reason: Hypoglycemia Protocol Stop: 11/01/24 05:29 Glucose (Glucose 40% Gel 15 Gm Tube) 15 - 30 gm PO UD PRN; Protocol PRN Reason: Hypoglycemia Protocol Stop: 11/01/24 05:29 Glucose (Glucose 10 Tab/Tube) 4 - 8 tab PO UD PRN; Protocol PRN Reason: Hypoglycemia Protocol Stop: 11/01/24 05:29 Hydromorphone HCl (Hydromorphone Inj 1 Mg/Ml Syringe) 1 mg IV Q6H PRN PRN Reason: Pain Stop: 10/16/24 04:20 Last Admin: 10/06/24 14:03 Dose: 1 mg Promethazine HCl (Phenergan) 12.5 mg in 50.5 mls @ 202 mls/hr IV Q6H PRN PRN Reason: Nausea And Vomiting Stop: 11/01/24 04:20 Last Infusion: 10/06/24 21:21 Dose: Infused Insulin Aspart (Insulin Aspart Per Unit Charge) 0 units SC ACHS RONY Stop: 11/01/24 07:29 Last Admin: 10/07/24 12:35 Dose: 2 units Lisinopril (Lisinopril 10 Mg Tab) 30 mg PO DAILY RONY Stop: 11/02/24 08:59 Last Admin: 10/07/24 08:41 Dose: 30 mg Lorazepam (Lorazepam 0.5 Mg Tab) 0.5 mg PO TID PRN PRN Reason: Anxiety Stop: 11/01/24 04:20 Miscellaneous (Carbohydrates For Hypoglycemia ) 15 - 30 gm PO UD PRN PRN Reason: Hypoglycemia Protocol Stop: 11/01/24 05:29 Miscellaneous (Pending Order: Colchicine) 1 each N/A DAILY RONY Stop: 11/03/24 08:59 Last Admin: 10/07/24 08:33 Dose: Not Given Oxycodone HCl (Oxycodone Hcl Ir 5 Mg Tab (Immediate Release)) 5 - 10 mg PO QID PRN PRN Reason: Pain Stop: 10/16/24 04:20 Last Admin: 10/07/24 05:30 Dose: 5 mg Phenazopyridine HCl (Phenazopyridine Hcl 200 Mg Tab) 200 mg PO BID RONY Stop: 11/01/24 08:59 Last Admin: 10/07/24 08:40 Dose: 200 mg Polyethylene Glycol (Polyethylene (Miralax) 17 Gm Pack) 17 gm PO DAILY RONY Stop: 11/02/24 08:59 Last Admin: 10/07/24 08:41 Dose: Not Given Tamsulosin HCl (Tamsulosin Hcl 0.4 Mg Cap) 0.4 mg PO DAILY RONY Stop: 11/01/24 08:59 Last Admin: 10/07/24 08:40 Dose: 0.4 mg
[2024-10-07] MEDS: CIPROFLOXACIN 500 MG TAB PO SCH (20:34)
[2024-10-08 07:50] VITALS: TEMP 98.4
--- NOTE | 2024-10-08 12:41 | Hospitalist Progress Note ---
Date of Service October 08, 2024 Assessment & Plan (1) Complicated UTI (urinary tract infection): Plan: 48-year-old male with PMH of HTN, HLD, SIXTO on CPAP, T2DM on oral medications, gout, urolithiasis who was recently admitted 09/29/24-10/01/24 and was managed for Obstructive uropathy status post cystoscopy & right ureteral stent and IV antibiotic for right pyelonephritis. He was discharged on Rocephin. After discharge he started to notice itchy rash all over his abdomen and arms relieved with Benadryl. Later that night, he had fever and chills, temperature up to 102.4 F and hence he was brought to the ED 10/02 for evaluation. Patient reported mild achy right-sided discomfort at presentation. 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 F/u admitting urine and bl cx. c/w zosyn 10/02 for now. ID consult reviewed, follow cultures to end. Denies any fever and/or chills and the white count is normal Urine culture is showing less than 1,000 colonies per mL Will continue current antibiotic Discussed with the infectious disease and advised to have Cipro 500 twice daily for the next 7 days He was given ciprofloxacin 500 twice daily to finish the course for the next 6 days Discussed with the provider at the facility prior to discharge Obstructive uropathy, recurrent kidney stones: Urology on board, s/p cystoscopy and right ureteral stent placement 09/30, c/w iv hydration. f/u w/ uro on dc. Has been complaining of more pain in the right groin Has been getting adequate pain medications without much improvement Will ask for urology reevaluation Appreciate urology input and recommendation- we will keep the appointment as an outpatient The urologist will call him as an outpatient to do the procedure if needed Other chronic medical conditions: Continue with/resume home meds as and when able. hypertension, stable, c/w home lisinopril, will hold hctz for now hyperlipidemia, not on statin Rx SIXTO on CPAP DM2 on oral medications, a1c 6.3 gout, acute flare: Rt ankle/foot pain. colchicine and diclo gel, follow. rt ankle pain/swelling improving well. DVT prophylaxis. lovenox subcu Full code Admission and Anticipated Discharge Date Admission Date: October 02, 2024 Subjective 10/06/2024 The patient was seen and examined in medical floor He has been complaining of more pain in the left lower quadrant and in the groin likely secondary to renal stone Has been getting pain medications without much improvement Denies any fever and/or chills Will inform urologist 10/07/2024 The patient was seen and examined in medical floor He is pain in the right groin has improved a lot He has been waiting to be seen by the urologist Denies any fever and/or chills 10/08/2024 The patient was seen and examined in medical floor He has been doing much better today and denies any pain in the groin or in the abdomen Denies any fever and/or chills Review of Systems Review of Systems: All systems reviewed and are unremarkable except as noted below Physical Exam Physical Exam: Lying in bed with acute distress due to right groin pain Constitutional: well developed, well nourished, + acute distress ( due to pain in the right groin) and + ill appearing Eyes: PERRL, conjunctivae normal, anicteric sclerae ENMT: external ear and nose normal, oropharynx normal Neck: trachea midline, no thyromegaly Respiratory: no respiratory distress Auscultation: lungs clear to auscultation bilaterally Cardiovascular: Rate/Rhythm: regular rate and regular rhythm; not tachycardic Heart Sounds: normal S1 and normal S2; no murmur Extremities: no edema Gastrointestinal (Abdomen): Inspection/Auscultation: normal bowel sounds; abdomen not distended Percussion/Palpation: + abdomen tender ( mildly tender right groin area, no mass) Neurologic: normal touch/pain/proprioception and moves all extremities; no focal motor deficits Lymphatic: no cervical or axillary lymphadenopathy Results & Data Results & Data Vital Signs (Past 12 Hours) Vital Signs Temp Pulse Resp BP Pulse Ox O2 Del Method 10/08/24 07:49 36.9 C 10/08/24 07:41 75 18 123/74 96 Room Air
[2024-10-08 12:59] VITALS: BP 110/67; PULSE 66
--- NOTE | 2024-10-09 07:34 | Discharge Summary ---
Date of Service October 09, 2024 Admission HPI Per Admitting Provider History obtained from patient and records. Medical history significant for hypertension, hyperlipidemia, SIXTO on CPAP, DM2 on oral medications, gout, recent pyelonephritis secondary to obstructing kidney stone status post recent stent placement on ceftriaxone Rx. Recent confinement September 29 to 2024 for early right-sided pyelonephritis secondary to obstructive kidney stone. Status post cystoscopy and right uret eral stent placement. No growth on cultures. Patient discharged back to correctional facility yesterday on ceftriaxone course. Yesterday afternoon, patient noted an itchy rash over his abdomen and arms. No chest pain, or SOB. Not sure what precipitated allergic reaction. Improved rash with Benadryl administration at correctional facility. Later that night, patient had fever chills, temperature of 102.4. Patient brought to ER for evaluation. Mild achy right-sided discomfort at the ER without hematuria symptoms. 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 Admission Exam Per Admitting Provider Physical Exam: GENERAL: obese, pleasant, no respiratory distress SKIN: Maculopapular rash over trunk and upper extremities, normal color, warm HEENT: Alopecia, bespectacled, pink palpebral conjunctivae, no ptosis, dry buccal mucosa NECK : Supple, no tenderness CHEST : CTA, no tenderness HEART : RRR, no obvious murmurs ABDOMEN: Some distention, minimal RLQ tenderness EXTREMITIES : No LE swelling/tenderness, palpable pulses, no other conspicuous deformities noted NEUROLOGIC : Coherent, no facial asymmetry, no other gross focality Principal Diagnosis Complicated UTI, obstructive uropathy with recurrent kidney stones Discharge Exam Lying in bed with acute distress due to right groin pain Constitutional well developed, well nourished, + acute distress ( due to pain in the right groin) and + ill appearing Eyes PERRL, conjunctivae normal, anicteric sclerae ENMT external ear and nose normal, oropharynx normal Neck trachea midline, no thyromegaly Respiratory no respiratory distress Auscultation: lungs clear to auscultation bilaterally Cardiovascular Rate/Rhythm: regular rate and regular rhythm; not tachycardic Heart Sounds: normal S1 and normal S2; no murmur Extremities: no edema Gastrointestinal (Abdomen) Inspection/Auscultation: normal bowel sounds; abdomen not distended Percussion/Palpation: + abdomen tender ( mildly tender right groin area, no mass) Neurologic normal touch/pain/proprioception and moves all extremities; no focal motor deficits Lymphatic no cervical or axillary lymphadenopathy Discharge Data Allergies Allergy/AdvReac Type Severity Reaction Status Date / Time No Known Allergies Allergy Verified 10/02/24 01:18 Consultations 10/02/24 12:43 Consult Infectious Diseases Routine Ordered Studies 10/02/24 03:12 CT abd pelvis wo con Stat Hospital Course (1) Complicated UTI (urinary tract infection): 48-year-old male with PMH of HTN, HLD, SIXTO on CPAP, T2DM on oral medications, gout, urolithiasis who was recently admitted 09/29/24-10/01/24 and was managed for Obstructive uropathy status post cystoscopy & right ureteral stent and IV antibiotic for right pyelonephritis. He was discharged on Rocephin. After discharge he started to notice itchy rash all over his abdomen and arms relieved with Benadryl. Later that night, he had fever and chills, temperature up to 102.4 F and hence he was brought to the ED 10/02 for evaluation. Patient reported mild achy right-sided discomfort at presentation. 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 F/u admitting urine and bl cx. c/w zosyn 10/02 for now. ID consult reviewed, follow cultures to end. Denies any fever and/or chills and the white count is normal Urine culture is showing less than 1,000 colonies per mL Will continue current antibiotic Discussed with the infectious disease and advised to have Cipro 500 twice daily for the next 7 days He was given ciprofloxacin 500 twice daily to finish the course for the next 6 days Discussed with the provider at the facility prior to discharge Obstructive uropathy, recurrent kidney stones: Urology on board, s/p cystoscopy and right ureteral stent placement 09/30, c/w iv hydration. f/u w/ uro on dc. Has been complaining of more pain in the right groin Has been getting adequate pain medications without much improvement Will ask for urology reevaluation Appreciate urology input and recommendation- we will keep the appointment as an outpatient The urologist will call him as an outpatient to do the procedure if needed Other chronic medical conditions: Continue with/resume home meds as and when able. hypertension, stable, c/w home lisinopril, will hold hctz for now hyperlipidemia, not on statin Rx SIXTO on CPAP DM2 on oral medications, a1c 6.3 gout, acute flare: Rt ankle/foot pain. colchicine and diclo gel, follow. rt ankle pain/swelling improving well. DVT prophylaxis. lovenox subcu Full code Total Time Total Time Spent Total Time Spent (In Minutes): 35 minutes Discharge Plan Discharge Items Patient Disposition: [facility] Reason For Visit: COMP UTI Discharge Diagnosis: Complicated UTI, obstructive uropathy with recurrent kidney stones Condition on Discharge: Fair Activity: Resume your previous activity Non-emergency contact: Primary Care Provider Call non-emergency contact if: you have any medication questions and your symptoms worsen Follow-up/Referrals: Cruz PINA [Primary Care Provider] - Diet: Carb Consistent or DM2 and Heart Healthy Addtl Attending Provider Instructions: please finish the course of antibiotic take your medications as advised please keep appointments with the healthcare providers Pending Studies at Discharge: No Stand-Alone Forms: My [employer], Smoking Cessation Skilled Items Patient informed of condition?: Yes Discharge Level of Care: Other Communicable Disease: No Discharge Prognosis: Stable Lines: None Urinary Catheter: No Medications and DC Order Prescriptions: New ciprofloxacin HCl 500 mg Tablet 500 mg PO BID Qty: 12 0RF Continued acetaminophen 500 mg Tablet 1,000 mg PO TID PRN (Reason: Pain) allopurinol 300 mg Tablet 300 mg PO DAILY chlorthalidone 25 mg Tablet 12.5 mg PO DAILY Hold Instructions: Resume on 10/04/24. colchicine 0.6 mg Tablet 0.6 mg PO DAILY PRN (Reason: FLARES) Rx Instructions: TAKE ONE TABLET ONCE DAILY UNTIL FLARE RESOLVES, NEEDED. lisinopril 30 mg Tablet 30 mg PO DAILY Hold Instructions: Resume on 10/05/24. metformin 500 mg Tablet 500 mg PO BIDM Hold Instructions: Resume on 10/02/24. Rx Instructions: TAKE THIS MED WITH BREAKFAST AND EVENING MEAL. tamsulosin 0.4 mg capsule 0.4 mg PO DAILY Qty: 30 0RF diphenhydramine HCl [Benadryl] 25 mg Capsule 25 mg PO BID PRN (Reason: Itching) phenazopyridine 200 mg tablet 200 mg PO BID Discontinued ceftriaxone 2 gram Recon Soln 2 g IM DAILY Qty: 7 0RF Rx Instructions: End of Treatment: 10/07/2024 Discharge Orders: Discharge Order (Routine); Ordered 10/08/24 Ordered By: Charles Salazar Admission Data Admit Date/Time: 10/02/24 04:20 Attending Provider: Charles Salazar Admit Provider: Alexander Parada Primary Care Provider: Cruz PINA Other Providers: Gallo Johnston; Camilo Ruiz; Paco Osborn I.; Suhas Forde II; Kathi Wadsworth; Arnaldo Newberry; Aníbal Martin; Allyn Lambert; Dank Pleitez; Yenny Oden Other Interventions: Discharge Summary Assessment (RN) Last Done: 10/08/24 12:58
== END 2024-10-08 13:55 | DRG 690 ==
LOC: ED 22:16 → EDINP 10-02 04:20 → SUATTDRO 10-02 04:20 → 3E 10-02 05:31